=== PATIENT | female | born 1950 | race Caucasian/White ===

== ENCOUNTER → 2016-12-06 | Outpatient (CLI) | payer OTHER ==
[~2016-12-06] MED LIST: CPR500 PO; FLUO40CA8 PO; HYDC25 PO; LEVO25TA30 PO; LISI-725 PO; METR-163 PO; OXYC-57 PO; SIMV20TA2 PO
--- NOTE | 2016-12-06 16:40 | MAMMOGRAPHY REPORT ---
BILATERAL DIGITAL SCREENING MAMMOGRAM WITH CAD: 12/06/2016 CLINICAL HISTORY: Routine screening. Patient has no complaints. TECHNIQUE: Bilateral CC, MLO and repeat left MLO views were obtained. Current study was also evalua candace with a Computer Aided Detection (CAD) system. COMPARISON: Comparison is made to exams dated: 12/04/2015 mammogram, 08/22/2014 mammogram - [facility], 08/29/2013 mammogram, 08/14/2012 mammogram, 08/10/2010 mammogram, and 08/12/2011 mammogram. BREAST COMPOSITION: The tissue of both breasts is heterogeneously dense, which may obscure small ma sses. FINDINGS: A linear scar marker overlies the lower inner quadrant of the right breast. There is slig ht asymmetry of the size of the breasts, left greater than right. 2 surgical clips are stable proje cting over the right superior breast on the MLO view. There are a few benign-appearing coarse calci fications in the breasts. No new suspicious mass, architectural distortion or cluster of suspicious microcalcifications is seen. IMPRESSION: ACR BI-RADS CATEGORY 1: NEGATIVE There is no mammographic evidence of malignancy. A 1 year screening mammogram is recommended. The p atient will receive written notification of the results. Approximately 10% of breast cancers are not detected with mammography. A negative mammographic repor t should not delay biopsy if a clinically suggestive mass is present. Oumou Langley M.D. ay/:12/06/2016 15:57:02 Shift Superintendent: Lachelle TEJEDA(Efren)(Daisy), [facility] letter sent: Normal 1/2 BI-RADS Code: ACR BI-RADS Category 1: Negative
== END | disposition home or self-care (01) ==
LOC: C.MAMM 09:37
PROVIDERS: ATTEND Internal Medicine Critical Care Medicine
DX: Z12.31 Encounter for screening mammogram for malignant neoplasm of breast (principal)

== ENCOUNTER → 2017-02-14 | Outpatient (CLI) | payer OTHER ==
[2017-02-14 10:52] LABS: BASO % 1.7 %; BASO ABS # 0.11 K/uL (0-0.2); COMPLETE YES; EOS % 9.8 %; HEMATOCRIT 45.5 % (37-47); IG% 0.2 %; LYMPH % 25.7 %; LYMPH ABS # 1.65 K/uL (1.2-3.4); MEAN CORPUSCULAR HEMOGLOBIN 31.6 pg (25-34); MEAN CORPUSCULAR HGB CONC 33.6 g/dl (32-36); MEAN PLATELET VOLUME 10.7 fL (7.4-10.4); MONO % 10.4 %; NEUT % 52.2 %; PLATELET COUNT 295 K/uL (130-400); RED BLOOD COUNT 4.84 M/uL (4.2-5.4); WHITE BLOOD COUNT 6.43 K/uL (4.8-10.8)
[2017-02-14 11:00] LABS: BLOOD UREA NITROGEN 18 mg/dl (7-18); BUN/CREATININE RATIO 18.4 (10-20); CARBON DIOXIDE 27 mmol/L (21-32); CHLORIDE 103 mmol/L (98-107); CREATININE 0.96 mg/dl (0.60-1.20); GLUCOSE 90 mg/dl (70-99); POTASSIUM 4.3 mmol/L (3.5-5.1); SODIUM 140 mmol/L (136-145)
== END | disposition home or self-care (01) ==
LOC: C.LABVPSUW 09:33
PROVIDERS: ATTEND Internal Medicine Critical Care Medicine
DX: I10 Essential (primary) hypertension (principal); D64.9 Anemia, unspecified; E03.9 Hypothyroidism, unspecified

== ENCOUNTER → 2017-06-16 | Outpatient (CLI) | payer OTHER ==
[2017-06-16 09:57] LABS: BASO % 1.3 %; BASO ABS # 0.09 K/uL (0-0.2); COMPLETE YES; EOS % 11.7 %; HEMATOCRIT 43.2 % (37-47); IG% 0.1 %; LYMPH % 28.1 %; LYMPH ABS # 1.92 K/uL (1.2-3.4); MEAN CELL VOLUME 93.7 fL (80-100); MEAN CORPUSCULAR HEMOGLOBIN 31.9 pg (25-34); MEAN PLATELET VOLUME 10.1 fL (7.4-10.4); MONO % 9.2 %; NEUT % 49.6 %; PLATELET COUNT 300 K/uL (130-400); RED BLOOD COUNT 4.61 M/uL (4.2-5.4); WHITE BLOOD COUNT 6.84 K/uL (4.8-10.8)
[2017-06-16 10:06] LABS: ALT/SGPT 18 U/L (12-78); AST/SGOT 24 U/L (15-37); BLOOD UREA NITROGEN 20 mg/dl (7-18); BUN/CREATININE RATIO 22.5 (10-20); CALCIUM 9.4 mg/dl (8.5-10.1); CARBON DIOXIDE 28 mmol/L (21-32); CHLORIDE 104 mmol/L (98-107); CREATININE 0.91 mg/dl (0.60-1.20); GLUCOSE 81 mg/dl (70-99); POTASSIUM 4.1 mmol/L (3.5-5.1); SODIUM 139 mmol/L (136-145)
[2017-06-16 10:18] LABS: ALB/GLOB RATIO 0.9 (0.9-2); ALKALINE PHOSPHATASE 99 U/L (45-117); CHOLESTEROL 196 mg/dl (0-200); CHOLESTEROL/HDL RATIO 3.4; HDL CHOLESTEROL 58 mg/dl; LDL CHOLESTEROL CALCULATED 110 mg/dl; TRIGLYCERIDES 139 mg/dl (0-150); VERY LOW DENSITY LIPOPROT CALC 28 mg/dl
[2017-06-16 10:36] LABS: ESTIMATED AVERAGE GLUCOSE 114 mg/dl; HA1C FLAG Normal (Normal)
== END ==
LOC: C.LABVPSUW 09:12
PROVIDERS: ATTEND Internal Medicine Critical Care Medicine
DX: D64.9 Anemia, unspecified (principal); E11.9 Type 2 diabetes mellitus without complications; N28.9 Disorder of kidney and ureter, unspecified; I10 Essential (primary) hypertension; E78.5 Hyperlipidemia, unspecified; E03.9 Hypothyroidism, unspecified

== ENCOUNTER → 2017-12-08 | Outpatient (CLI) | payer OTHER ==
--- NOTE | 2017-12-08 15:38 | MAMMOGRAPHY REPORT ---
BILATERAL DIGITAL SCREENING MAMMOGRAM TOMOSYNTHESIS WITH CAD: 12/08/2017 CLINICAL HISTORY: Asymptomatic. Personal history of breast cancer. TECHNIQUE: Breast tomosynthesis in addition to standard 2D mammography was performed. Current study was also evaluated with a Computer Aided Detection (CAD) system. COMPARISON: Comparison is made to exams dated: 12/06/2016 mammogram, 12/04/2015 mammogram, 08/22/2014 ma mmogram - [facility], 08/29/2013 mammogram, 08/14/2012 mammogram, and 08/12/2011 tim mogram. BREAST COMPOSITION: The tissue of both breasts is heterogeneously dense, which may obscure small mas ses. FINDINGS: No suspicious masses, calcifications, or areas of architectural distortion are noted in ei ther breast. There has been no significant interval change compared to prior exams. There are stable post surgical changes in the right lower inner quadrant, with a linear scar marker denoting a scar o n the right lower inner breast. 2 surgical clips project over the right pectoralis muscle on the MLO view. Bilateral benign-appearing calcifications are not significantly changed. IMPRESSION: ACR BI-RADS CATEGORY 2: BENIGN There is no mammographic evidence of malignancy. A 1 year screening mammogram is recommended. The pa tient will receive written notification of the results. Approximately 10% of breast cancers are not detected with mammography. A negative mammographic report should not delay biopsy if a clinically suggestive mass is present. Elaine Griffin M.D. /:12/08/2017 14:57:43 Park Warden: Karma Reeder, [facility] letter sent: Normal 1/2 BI-RADS Code: ACR BI-RADS Category 2: Benign
== END | disposition home or self-care (01) ==
LOC: C.MAMM 09:08
PROVIDERS: ATTEND Internal Medicine Critical Care Medicine
DX: Z12.31 Encounter for screening mammogram for malignant neoplasm of breast (principal)

== ENCOUNTER → 2018-04-17 | Day surgery (SDC) | payer OTHER ==
[2018-04-11 07:37] VITALS: Ht 167.6 cm; Wt 104.5 kg
[~2018-04-17] VITALS: Ht 167.6 cm; Wt 104.5 kg
[~2018-04-17] MED LIST changes: +ACET-1311 PO; +ATROPINE SULFATE 0.1 MG/ML 5ML SYR IV PRN; -CPR500 PO; +EpHEDrine SULFATE INJ 50 MG/ML AMP IV PRN; -HYDC25 PO; +HYDR25TA4 PO; -LEVO25TA30 PO; +LEVO25TA5 PO; +LIDOCAINE HCL 2% 2 ML VIAL (20MG/ML) ONE; -LISI-725 PO; +LISI20TA3 PO; +METO50TA16 PO; -METR-163 PO; -OXYC-57 PO; +PROPOFOL IV EMULSION 10 MG/ML 20 ML VIAL ONE; +SIMV10TA2 PO; -SIMV20TA2 PO; +SODIUM CHLORIDE 0.9% 500ML 500 ML IV ONE
--- NOTE | 2018-04-17 10:18 | Endo History and Physical ---
History & Physical Date of Service: Apr 17, 2018. Chief Complaint: LUQ pain Referring Physician: Peter Lopez History of Present Illness 67 yo CF who presents for EGD secondary to LUQ abdominal pain. Past Surgical History Hx Cardiac Surgery: No Hx Internal Defibrillator: No Hx Pacemaker: No Hx Abdominal Surgery: Yes (OVARIAN CYST REMOVED) Hx of Implantable Prosthesis: No Hx Post-Op Nausea and Vomiting: No Hx Cancer Surgery: Yes (RT BREAST LUMPECTOMY) Hx Thoracic Surgery: No Hx Orthopedic: Yes (LUMBAR FUSION, RT OTF) Hx Urinary Tract Surgery: No Family History None Social History Smoking Status: Former Smoker Hx Substance Use: No Hx Alcohol Use: Yes (RARELY) Allergies Coded Allergies: Ciprofloxacin (Verified Allergy, Unknown, CAUSED C-DIFF, 04/11/18) Codeine (Verified Adverse Reaction, Mild, NAUSEA/VOMITING, 04/11/18) CAN TOLERATE HYDROCODONE Current Medications Reported Home Medications Medications Dose Route/Sig Max Daily Dose Days Date Category Tylenol (Acetaminophen) 325 Mg Tab 650 Mg PO DIRECTED PRN 04/11/18 Reported Hctz (Hydrochlorothiazide) 25 Mg Tab 25 Mg PO QAM 04/11/18 Reported Prinivil (Lisinopril) 20 Mg Tab 20 Mg PO QAM 04/11/18 Reported Zocor (Simvastatin) 10 Mg Tab 10 Mg PO QAM 04/11/18 Reported Lopressor (Metoprolol Tartrate) 50 Mg Tab 50 Mg PO QAM 04/11/18 Reported Prozac (Fluoxetine HCl) 40 Mg Cap 40 Mg PO QAM 04/11/18 Reported Levothyroxine Sodium 25 Mcg Tab 1 Tab PO QAM 04/11/18 Reported Vital Signs Weight (Kilograms): 104.55 Height (Feet): 5 Height (Inches): 6 Date Time Temp Pulse Resp B/P (MAP) Pulse Ox O2 Delivery O2 Flow Rate FiO2 04/17/18 10:10 36.6 80 20 128/83 (98) 94 Room Air Physical Exam General Appearance: WD/WN, no apparent distress Respiratory/Chest: Auscultation: breath sounds normal Cardiovascular: Heart Auscultation: RRR Abdomen: Bowel Sounds: normal Inspection & Palpation: soft, non-distended, no tenderness, guarding & rebound Assessment and Plan Assessment: 67 yo CF who presents for EGD secondary to LUQ abdominal pain. Plan: Proceed with EGD.
--- NOTE | 2018-04-17 11:52 | Discharge Instructions ---
Endoscopy Patient Instructions Date / Procedure(s) Performed Apr 17, 2018. EGD Allergy Information Coded Allergies: Ciprofloxacin (Verified Allergy, Unknown, CAUSED C-DIFF, 04/17/18) Codeine (Verified Adverse Reaction, Mild, NAUSEA/VOMITING, 04/17/18) CAN TOLERATE HYDROCODONE Discharge Date / Findings Apr 17, 2018. Esophagitis s/p biopsies Hiatal hernia Medication Instructions 1) Start Protonix 40mg by mouth each morning 1/2 hour prior to breakfast. 2) OK to resume all medications today as prescribed Reported Home Medications Medications Dose Route/Sig Max Daily Dose Days Date Category Tylenol (Acetaminophen) 325 Mg Tab 650 Mg PO DIRECTED PRN 04/11/18 Reported Hctz (Hydrochlorothiazide) 25 Mg Tab 25 Mg PO QAM 04/11/18 Reported Prinivil (Lisinopril) 20 Mg Tab 20 Mg PO QAM 04/11/18 Reported Zocor (Simvastatin) 10 Mg Tab 10 Mg PO QAM 04/11/18 Reported Lopressor (Metoprolol Tartrate) 50 Mg Tab 50 Mg PO QAM 04/11/18 Reported Prozac (Fluoxetine HCl) 40 Mg Cap 40 Mg PO QAM 04/11/18 Reported Levothyroxine Sodium 25 Mcg Tab 1 Tab PO QAM 04/11/18 Reported Provider Instructions Activity Restrictions - No exercising or heavy lifting for 24 hours. - Do not drink alcohol the day of the procedure. - Do not drive a car or operate machinery until the day after the procedure. - Do not make any important decisions or sign important papers in 24 hours after the procedure. Following Day: - Return to full activity which may include returning to work/school. Diet Start your diet with liquids and light foods (jello, soup, juice, toast). Then eat your usual diet if not nauseated. Treatment For Common After Affects For mild abdominal pain, bloating, or excessive gas: - Rest - Eat lightly - Lie on right side Follow-Up Information Follow-up with Peter Lopez as scheduled Anesthesia Information What You Should Know You have had a procedure that required some medicine to reduce anxiety and discomfort. This treatment is called moderate sedation. After receiving the treatment, you may be sleepy, but you will be able to breathe on your own. The effects of the treatment may last for several hours. Follow these instructions along with Activity/Diet recommendations noted above: * Do NOT do anything where dizziness or clumsiness would be dangerous. * Rest quietly at home today, then you can be up and about tomorrow. * Have a responsible person stay with you the rest of today. * You may have had an I.V. today. If so, you may take the dressing off later today. Recommendations Call your doctor if: * Trouble breathing * Continuous vomiting for more than 24 hours * Temperature above 101 degrees * Severe abdominal pain or bloating * Pain not relieved by pain medicine ordered * There is increased drainage or redness from any incision * A large amount of rectal bleeding greater than 2-3 tablespoons. (If you had a polyp/s removed or have hemorrhoids, a small amount of blood - from the rectum is to be expected.) * You have any unanswered questions or concerns. IN THE EVENT OF A SERIOUS EMERGENCY, GO TO THE NEAREST EMERGENCY ROOM Your discharge instructions were prepared by provider Mandeep Villalba. Patient Instructions Signature Page Kassi Frod Patient (or Guardian) Signature/Date: I have read and understand the instructions given to me by my caregivers. Caregiver/RN/Doctor Signature/Date: The above-named patient and/or guardian has received patient instructions on this date. + Original Patient Signature Page (only) stays with chart. Please make copy for patient.
--- NOTE | 2018-04-17 11:57 | GI REPORT ---
Patient Name: Kassi Ford Procedure Date: 04/17/2018 11:03 AM Date of : 1950 Admit Type: Outpatient Age: 67 Gender: Female Attending MD: Mandeep Villalba DO Procedure: Upper GI endoscopy Providers: Mandeep Villalba DO Referring MD: Rizwana Coyle Indications: Abdominal pain in the left upper quadrant Medicines: Monitored Anesthesia Care Complications: No immediate complications. Estimated Blood Loss: Estimated blood loss: none. Procedure: Pre-Anesthesia Assessment: - Prior to the procedure, a History and Physical was performed, and patient medications and allergies were reviewed. The patient's tolerance of previous anesthesia was also reviewed. The risks and benefits of the procedure and the sedation options and risks were discussed with the patient. All questions were answered, and informed consent was obtained. Prior Anticoagulants: The patient has taken no previous anticoagulant or antiplatelet agents. ASA Grade Assessment: III - A patient with severe systemic disease. After reviewing the risks and benefits, the patient was deemed in satisfactory condition to undergo the procedure. After obtaining informed consent, the endoscope was passed under direct vision. Throughout the procedure, the patient's blood pressure, pulse, and oxygen saturations were monitored continuously. The scope was introduced through the mouth, and advanced to the second part of duodenum. The upper GI endoscopy was accomplished without difficulty. The patient tolerated the procedure well. Findings: Moderately severe esophagitis with no bleeding was found. Biopsies were taken with a cold forceps for histology. A small hiatal hernia was present. The examined duodenum was normal. Impression: - Moderately severe chronic esophagitis. Biopsied. - Small hiatal hernia. - Normal examined duodenum. Recommendation: - Resume previous diet. - Use Protonix (pantoprazole) 40 mg PO daily. - Await pathology results. - Return to GI office in 6 weeks. Mandeep Villalba DO 04/17/2018 11:56:52 AM This report has been signed electronically. Note Initiated On: 04/17/2018 11:03 AM Number of Addenda: 0 I attest to the content of the Intraoperative Record and orders documented therein, exceptions below {[id number]}
[2018-04-17 12:13] VITALS: BP 122/80; PULSE 72; O2SAT 96
--- NOTE | 2018-04-17 12:17 | Anesthesiology Progress Note ---
Anesthesia Post Op Note Date & Time Apr 17, 2018 at 12:17 Vital Signs Pain Intensity: 0 Vital Signs Past 12 Hours Date Time Temp Pulse Resp B/P (MAP) Pulse Ox O2 Delivery O2 Flow Rate FiO2 04/17/18 12:13 72 20 122/80 (94) 96 Room Air 04/17/18 12:04 72 20 98/73 (81) 94 Room Air 04/17/18 11:47 36.6 85 20 118/76 (90) 93 Room Air 04/17/18 10:10 36.6 80 20 128/83 (98) 94 Room Air Notes Mental Status: alert / awake / arousable, participated in evaluation Pt Amnestic to Procedure: Yes Nausea / Vomiting: adequately controlled Pain: adequately controlled Airway Patency, RR, SpO2: stable & adequate BP & HR: stable & adequate Hydration State: stable & adequate Anesthetic Complications: no major complications apparent
== END | disposition home or self-care (01) ==
LOC: C.GI 09:48
PROVIDERS: ATTEND Internal Medicine
DX: R10.12 Left upper quadrant pain (principal); K20.9 Esophagitis, unspecified; K44.9 Diaphragmatic hernia without obstruction or gangrene; I10 Essential (primary) hypertension; F41.9 Anxiety disorder, unspecified; F32.9 Major depressive disorder, single episode, unspecified; E03.9 Hypothyroidism, unspecified; E78.5 Hyperlipidemia, unspecified; Z86.711 Personal history of pulmonary embolism; Z87.891 Personal history of nicotine dependence; Z88.1 Allergy status to other antibiotic agents; Z88.5 Allergy status to narcotic agent; Z80.3 Family history of malignant neoplasm of breast

== ENCOUNTER 2023-09-17 02:24 | Inpatient (IN) ==
[2023-09-17] MEDS ORDERED: SODIUM CHLORIDE 0.9% 500 ML IV ONE (02:47)
--- NOTE | 2023-09-17 03:19 | Emergency Department Note ---
History of Present Illness General Chief complaint: Fall Stated complaint: Fall, R Hip Pain, R Rib Pain Time Seen by Provider: 09/17/23 02:40 History of Present Illness Provider complaint: Fall Maximum Pain Intensity: 8 73-year-old female presents emergency department for fall. Patient states that she went to the bathroom earlier this evening and then fell. She states she hurt her right ribs and her right hip. She states she did hit her head and is not sure if she lost consciousness. Reports no neck pain. No blood thinners. No abdominal pain. Home Medications Medication Instructions Recorded Confirmed Type fluoxetine 40 mg capsule 40 mg PO QAM 08/12/20 09/17/23 History levothyroxine 25 mcg tablet 25 mcg PO QAM 08/12/20 09/17/23 History lisinopril 20 mg tablet 20 mg PO QAM 08/12/20 09/17/23 History metoprolol succinate 50 mg 50 mg PO QAM 08/12/20 09/17/23 History tablet,extended release 24 hr denosumab 60 mg/mL subcutaneous 60 mg subcut Q180D 12/21/20 09/17/23 History syringe (Prolia) omeprazole 40 mg capsule,delayed 40 mg PO QAM 04/26/21 09/17/23 History release hydrochlorothiazide 25 mg tablet 25 mg PO QAM 06/26/21 09/17/23 History atorvastatin 20 mg tablet 20 mg PO DAILY 09/17/23 09/17/23 History calcium carbonate 600 mg-vitamin 1 tab PO DAILY 09/17/23 09/17/23 History D3 20 mcg (800 unit) chewable tablet (Caltrate 600 plus D) Allergies Allergy/AdvReac Type Severity Reaction Status Date / Time amoxicillin AdvReac Intermediate Diarrhea Verified 09/17/23 03:04 ciprofloxacin AdvReac Intermediate CAUSED Verified 09/17/23 03:04 C-DIFF codeine AdvReac Intermediate NAUSEA/VOMI Verified 09/17/23 03:04 TING Past Med/Surg History Medical History (Updated 09/17/23 @ 06:13 by Andres Alegria MD) Obesity Hx of Clostridium difficile infection years ago-tx Overactive bladder HX: breast cancer 1999, sx, chemo, radiation Cataract Hypertension Hyperlipidemia Hypothyroid Mood disorder "would get panic attacks, was put on fluoxetine to prevent" GERD with esophagitis Surgical History Hx of cataract extraction rt. History of total right hip arthroplasty History of lumbar surgery History of lumpectomy of right breast w/axillary dissection-nodes clear Hx of colonoscopy Hx of wisdom tooth extraction Hx of tonsillectomy Social History Smoking Status: Former smoker Tobacco Type: Cigarettes Second Hand Exposure: Yes (father smoked pipe); Do You Dip or Chew Tobacco: No; Hx Alcohol Use: Yes (hx-none recently) Hx Substance Use: No Preferred Language: Cymro Communication Ability: Effective Extrusion Process Operator Required: No Beliefs That Will Affect Care: None marital status: Current Living Situation: Alone Feels Safe at Home: Yes Assistive Devices: Glasses, Scooter/Electric Scooter and Walker Physical Exam Vital Signs Vital Signs - 24 hr 09/17/23 02:34 09/17/23 02:35 Temperature 36.4 C L Temperature Source Axillary Pulse Rate 92 H 93 H Respiratory Rate 20 Respiratory Effort / Characteristics Non-Labored Spontaneous Respiratory Depth Normal Respiratory Pattern Regular Blood Pressure 94/58 L Blood Pressure Mean 70 Blood Pressure Position Lying Pulse Oximetry 96 Oxygen Delivery Method Room Air Sepsis Recent Fever Within 48 Hours No Sepsis New/Unexplained Change in Mental Status N/A Sepsis Action Taken by Nursing No Action Required Physical Exam GENERAL: She is oriented to person, place, and time. She appears well-developed and well-nourished. She does not appear distressed. HENT: Exam performed. -Head: Normocephalic and atraumatic. -Right Ear: External ear normal. No mastoid erythema -Left Ear: External ear normal. No mastoid erythema -Mouth/Throat: The oropharynx is clear and moist. No trismus in the jaw. No dental abscesses or uvula swelling. No oropharyngeal exudate or tonsillar abscesses. EYES: Conjunctivae and EOM are normal. Pupils are equal, round, and reactive to light. Right eye exhibits no discharge. Left eye exhibits no discharge. No scleral icterus. NECK: Normal range of motion. Neck supple. No JVD present. No spinous process tenderness present. CV: Normal rate, regular rhythm, normal heart sounds and intact distal pulses. There is no peripheral edema. Palpable radial pulses bue. PULM/CHEST: Effort normal and breath sounds normal. No respiratory distress. No stridor. She has no wheezes. She has no rales. -Chest Wall: She exhibits no tenderness. ABD: The abdomen is soft and obese. She has no distension. No mass is present. There is no tenderness. There is no rebound, no guarding MUSC/SKEL: Pelvis stable. NEURO: She is alert and oriented to person, place, and time. She has normal strength. No cranial nerve deficit or sensory deficit. Course Course 0240: The patient was evaluated in room A2. A complete history and physical exam was performed Cardiac monitoring: An order was placed for continuous cardiac monitoring. The monitor shows a rate of 90 with sinus rhythm interpreted by [place] 0611: Vital signs stable. Imaging shows no acute traumatic injury. Labs show a potassium 2.7. Potassium repletion started in the emergency department. Patient's creatinine is 2.29 with BUN of 142. BUN/creatinine ratio is 62. Patient is alert and oriented x 3. No altered mental status. Discussed the case with the [facility] team Dr. Medina who will admit the patient to their service. Administered Medications Discontinued Medications Sodium Chloride (Nss) 500 mls @ 999 mls/hr IV .Q31M ONE Stop: 09/17/23 03:17 Last Admin: 09/17/23 04:43 Dose: 999 mls/hr Documented By: Potassium Chloride (Potassium Chloride 10 Meq Tabcr) 40 meq PO NOW STA Stop: 09/17/23 05:48 Last Admin: 09/17/23 06:02 Dose: 40 meq Documented By: Medical Decision Making Laboratory Data Attestation: I reviewed the patient's lab results. 09/17/23 03:52 09/17/23 03:52 Lab Results 09/17/23 09/17/23 Range/Units 03:52 03:59 WBC 9.47 (4.8-10.8) K/ul RBC 4.43 (4.20-5.40) M/uL Hgb 13.2 (12.0-16.0) g/dl POC Hgb 12.9 (12.0-16.0) g/dl Hct 38.2 (37.0-47.0) % POC Hct 38 (37-47) % MCV 86.2 (80.0-100.0) fL MCH 29.8 (25.0-34.0) pg MCHC 34.6 (32.0-36.0) g/dL RDW Std Deviation 42.4 (36.4-46.3) fL RDW Coeff of [place]mond 13.5 (11.5-14.5) % Plt Count 368 (130-400) K/uL MPV 10.0 (9.4-12.4) fL Immature Gran % (Auto) 0.6 % Neut % (Auto) 68.6 % Lymph % (Auto) 9.5 % [place] % (Auto) 11.1 % Eos % (Auto) 9.1 % Baso % (Auto) 1.1 % Neut # (Auto) 6.50 (1.40-6.50) K/uL Lymph # (Auto) 0.90 L (1.20-3.40) K/uL [place] # (Auto) 1.05 H (0.11-0.59) K/uL Eos # (Auto) 0.86 H (0.00-0.50) K/uL Baso # (Auto) 0.10 (0.00-0.20) K/uL Immature Gran # (Auto) 0.06 (0.01-0.20) K/uL PT 10.7 (9.0-12.0) Seconds INR 1.0 (0.9-1.1) APTT 21 (21-31) Seconds PTT Ratio 0.7 POC Sodium 136 (135-144) mmol/L Sodium 135 L (136-145) mmol/L POC Potassium 2.7 L (3.3-5.0) mmol/L Potassium 2.9 L (3.5-5.1) mmol/L POC Chloride 102 (101-112) mmol/L Chloride 100 (98-107) mmol/L Carbon Dioxide 21 (21-32) mmol/L POC Total CO2 22 L (24-31) mmol/L Anion Gap 14 H (3-11) POC Anion Gap 16.0 (16-25) mmol/L POC BUN 137 H* (7-18) mg/dl BUN 142 H (6-23) mg/dl Creatinine 2.29 H (0.6-1.2) mg/dl POC Creatinine 2.5 H (0.6-1.3) mg/dl Est Cr Clr Drug Dosing 25.5 ml/min Est GFR ( Amer) 23.6 ml/min Est GFR (Non-Af Amer) 20.4 ml/min BUN/Creatinine Ratio 62.0 H (10-20) Glucose 114 H (70-99(Fasting)) mg/dl POC Glucose (other) 119 H (70-99) mg/dl Calcium 11.2 H (8.6-10.3) mg/dl POC Ioniz Calcium Sachin 1.41 H (1.12-1.32) mmol/l Magnesium 2.0 (1.7-2.4) mg/dl Total Creatine Kinase 157 (26-192) U/L Imaging Data Attestation: I personally reviewed and interpreted this imaging study as follows: My Impression: Chest x-ray: Chest x-ray negative. Airway clear. No pneumothorax. No consolidation. No cardiomegaly or cephalization.. No free air under the diaphragm. No fractures of the skeletal structures. Pelvis x-ray: No significant change from the x-ray on September 08, 2023. 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 Right femur x-ray: No acute fracture or dislocation. Chronic right greater trochanteric fracture fragment. Radiologist's Impression: Cervical Spine CT 09/17/23 02:47 Exam(s): CT C SPINE EXAM: CT Cervical Spine Without Intravenous Contrast CLINICAL HISTORY: Reason for exam: fall. TECHNIQUE: Axial computed tomography images of the cervical spine without intravenous contrast. Automated exposure control was utilized for the study. A dose lowering technique was utilized adhering to the principles of ALARA. COMPARISON: No relevant prior studies available. FINDINGS: No acute fracture or traumatic subluxation. 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 Multilevel cervical spondylosis noted. Spinal canal is patent. The prevertebral and paraspinal soft tissues are grossly unremarkable. Approximately 3 cm right thyroid lobe nodule/lesion with associated calcification. Prominent emphysematous changes in the lung apices. IMPRESSION: No acute fracture or traumatic subluxation. Prominent multilevel cervical spondylosis. Approximately 3 cm right thyroid lobe nodule/lesion with associated calcification. Nonemergent ultrasound suggested to further evaluate. Electronically signed by: Dov Gilmore M.D. 09/17/23 05:[address] 09/17/23 02:48 Exam(s): CT HEAD Without Contrast EXAM: CT Head Without Intravenous Contrast CLINICAL HISTORY: Reason for exam: fall. TECHNIQUE: Axial computed tomography images of the head/brain without intravenous contrast. Automated exposure control was utilized for the study. A dose lowering technique was utilized adhering to the principles of ALARA. COMPARISON: No relevant prior studies available. FINDINGS: There is no acute intracranial hemorrhage or major vascular territory infarct. No mass effect or midline shift seen. There is prominence of the ventricles and sulci consistent with generalized parenchymal volume loss. Scattered hypodensities throughout the periventricular and subcortical white matter are noted, likely sequela of chronic microvascular changes. The calvarium is intact. Bilateral lens replacements noted. The visualized paranasal sinuses and mastoid air cells are clear. IMPRESSION: No acute intracranial pathology. Generalized parenchymal volume loss and sequela of chronic microvascular ischemic angiopathy. Electronically signed by: Dov Gilmore M.D. 09/17/23 05:11 AM Abdomen/Pelvis CT 09/17/23 04:03 Exam(s): CT ABDOMEN + PELVIS Without Contrast EXAM: CT Abdomen and Pelvis Without Intravenous Contrast CLINICAL HISTORY: Reason for exam: fall. TECHNIQUE: Axial computed tomography images of the abdomen and pelvis without intravenous contrast. CTDI is 36.6 mGy and DLP is 2537.47 mGy-cm. Automated exposure control was utilized for the study. A dose lowering technique was utilized adhering to the principles of ALARA. COMPARISON: No relevant prior studies available. FINDINGS: Lung bases: Unremarkable. No mass. No consolidation. ABDOMEN: Liver: Unremarkable. Gallbladder and bile ducts: Mildly distended gallbladder. No calcified stones. No ductal dilation. Pancreas: Unremarkable. No ductal dilation. Spleen: Unremarkable. No splenomegaly. Adrenals: Unremarkable. No mass. Kidneys and ureters: Unremarkable. No obstructing stones. No hydronephrosis. Stomach and bowel: Unremarkable. No obstruction. No mucosal thickening. PELVIS: Appendix: No findings to suggest acute appendicitis. Bladder: Unremarkable. No stones. Reproductive: Calcified fibroid uterus. ABDOMEN and PELVIS: Intraperitoneal space: Unremarkable. No free air. No significant fluid collection. Bones/joints: Postoperative changes right hip arthroplasty. Postoperative changes L2-L5 posterior interbody fusion. No acute fracture. No dislocation. Soft tissues: Unremarkable. Vasculature: Unremarkable. No abdominal aortic aneurysm. Lymph nodes: Unremarkable. No enlarged lymph nodes. IMPRESSION: No acute findings in the abdomen or pelvis. Electronically signed by: Zachery Her MD 09/17/23 04:54 AM ECG Data Attestation: I personally reviewed and interpreted this ECG as follows: Rate (beats per minute): 90 Rhythm: + normal sinus ECG Intervals/blocks: + Normal VT and + Normal QT-c ECG ST segments: + Normal ST segments ECG Findings: + PVCs Additional Comments: QRS 70 MDM Narrative 0240: The patient was evaluated in room A2. A complete history and physical exam was performed Cardiac monitoring: An order was placed for continuous cardiac monitoring. The monitor shows a rate of 90 with sinus rhythm interpreted by me 0611: Vital signs stable. Imaging shows no acute traumatic injury. Labs show a potassium 2.7. Potassium repletion started in the emergency department. Patient's creatinine is 2.29 with BUN of 142. BUN/creatinine ratio is 62. Patient is alert and oriented x 3. No altered mental status. Discussed the case with the [facility] hospitalist team Dr. Medina who will admit the patient to their service. Impression & Plan REEMA (acute kidney injury), Recurrent falls Discharge Plan Visit Data Chief Complaint: Fall Stated Complaint: Fall, R Hip Pain, R Rib Pain ED Provider: Andres Alegria Discharge Problem: REEMA (acute kidney injury), Recurrent falls Patient Disposition: Admitted As Inpatient Forms Stand Alone Forms: My [facility] Prescriptions Prescriptions: No Action fluoxetine 40 mg capsule 40 mg PO QAM levothyroxine 25 mcg tablet 25 mcg PO QAM lisinopril 20 mg tablet 20 mg PO QAM metoprolol succinate 50 mg tablet extended release 24 hr 50 mg PO QAM Prolia 60 mg/mL syringe 60 mg subcut Q180D Patient Comments: october and april injections omeprazole 40 mg capsule,delayed release(DR/EC) 40 mg PO QAM hydrochlorothiazide 25 mg tablet 25 mg PO QAM atorvastatin 20 mg tablet 20 mg PO DAILY Caltrate 600 plus D 600 mg-20 mcg (800 unit) Tablet,Chewable 1 tab PO DAILY Referrals Referrals: Peter Lopez MD [Primary Care Provider] -
[2023-09-17 04:12] LABS: iSTAT Creatinine 2.5 mg/dl (0.6-1.3); iSTAT Hemoglobin 12.9 g/dl (12.0-16.0); iSTAT Ionized Calcium 1.41 mmol/l (1.12-1.32); iSTAT Potassium 2.7 mmol/L (3.3-5.0)
[2023-09-17 04:17] LABS: Basophils % (auto) 1.1 %; Eosinophils # (auto) 0.86 K/uL (0.00-0.50); Eosinophils % (auto) 9.1 %; Hematocrit (blood only) 38.2 % (37.0-47.0); Hemoglobin 13.2 g/dl (12.0-16.0); Immature Granulocytes # (auto) 0.06 K/uL (0.01-0.20); Immature Granulocytes % (auto) 0.6 %; Lymphocytes % (auto) 9.5 %; Mean Corpuscular Hemoglobin 29.8 pg (25.0-34.0); Mean Corpuscular Hgb Conc 34.6 g/dL (32.0-36.0); Mean Corpuscular Volume 86.2 fL (80.0-100.0); Monocytes # (auto) 1.05 K/uL (0.11-0.59); Monocytes % (auto) 11.1 %; Neutrophils % (auto) 68.6 %; Platelet Count 368 K/uL (130-400); RDW Coefficient of Variation 13.5 % (11.5-14.5); RDW Standard Deviation 42.4 fL (36.4-46.3); Red Blood Count 4.43 M/uL (4.20-5.40); White Blood Count 9.47 K/ul (4.8-10.8)
[2023-09-17 04:43] LABS: Partial Thromboplastin Ratio 0.7; Partial Thromboplastin Time 21 Seconds (21-31); Prothrombin Time 10.7 Seconds (9.0-12.0)
[2023-09-17] MEDS: SODIUM CHLORIDE 0.9% 500 ML IV SCH ×3 (04:43→10:13)
[2023-09-17 04:46] LABS: Calcium 11.2 mg/dl (8.6-10.3); Creatinine Clr Calc Pharmacy 25.5 ml/min; Est GFR (African American) 23.6 ml/min; Est GFR (Non-African American) 20.4 ml/min; Potassium 2.9 mmol/L (3.5-5.1)
--- NOTE | 2023-09-17 04:55 | CT Scan Report ---
Exam(s): CT ABDOMEN + PELVIS Without Contrast EXAM: CT Abdomen and Pelvis Without Intravenous Contrast CLINICAL HISTORY: Reason for exam: fall. TECHNIQUE: Axial computed tomography images of the abdomen and pelvis without intravenous contrast. CTDI is 36.6 mGy and DLP is 2537.47 mGy-cm. Automated exposure control was utilized for the study. A dose lowering technique was utilized adhering to the principles of ALARA. COMPARISON: No relevant prior studies available. FINDINGS: Lung bases: Unremarkable. No mass. No consolidation. ABDOMEN: Liver: Unremarkable. Gallbladder and bile ducts: Mildly distended gallbladder. No calcified stones. No ductal dilation. Pancreas: Unremarkable. No ductal dilation. Spleen: Unremarkable. No splenomegaly. Adrenals: Unremarkable. No mass. Kidneys and ureters: Unremarkable. No obstructing stones. No hydronephrosis. Stomach and bowel: Unremarkable. No obstruction. No mucosal thickening. PELVIS: Appendix: No findings to suggest acute appendicitis. Bladder: Unremarkable. No stones. Reproductive: Calcified fibroid uterus. ABDOMEN and PELVIS: Intraperitoneal space: Unremarkable. No free air. No significant fluid collection. Bones/joints: Postoperative changes right hip arthroplasty. Postoperative changes L2-L5 posterior interbody fusion. No acute fracture. No dislocation. Soft tissues: Unremarkable. Vasculature: Unremarkable. No abdominal aortic aneurysm. Lymph nodes: Unremarkable. No enlarged lymph nodes. IMPRESSION: No acute findings in the abdomen or pelvis. Electronically signed by: Zachery Her MD 09/17/23 04:54 AM
--- NOTE | 2023-09-17 05:12 | CT Scan Report ---
Exam(s): CT HEAD Without Contrast EXAM: CT Head Without Intravenous Contrast CLINICAL HISTORY: Reason for exam: fall. TECHNIQUE: Axial computed tomography images of the head/brain without intravenous contrast. Automated exposure control was utilized for the study. A dose lowering technique was utilized adhering to the principles of ALARA. COMPARISON: No relevant prior studies available. FINDINGS: There is no acute intracranial hemorrhage or major vascular territory infarct. No mass effect or midline shift seen. There is prominence of the ventricles and sulci consistent with generalized parenchymal volume loss. Scattered hypodensities throughout the periventricular and subcortical white matter are noted, likely sequela of chronic microvascular changes. The calvarium is intact. Bilateral lens replacements noted. The visualized paranasal sinuses and mastoid air cells are clear. IMPRESSION: No acute intracranial pathology. Generalized parenchymal volume loss and sequela of chronic microvascular ischemic angiopathy. Electronically signed by: Dov Gilmore M.D. 09/17/23 05:11 AM
--- NOTE | 2023-09-17 05:14 | CT Scan Report ---
Exam(s): CT C SPINE EXAM: CT Cervical Spine Without Intravenous Contrast CLINICAL HISTORY: Reason for exam: fall. TECHNIQUE: Axial computed tomography images of the cervical spine without intravenous contrast. Automated exposure control was utilized for the study. A dose lowering technique was utilized adhering to the principles of ALARA. COMPARISON: No relevant prior studies available. FINDINGS: No acute fracture or traumatic subluxation. 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 Multilevel cervical spondylosis noted. Spinal canal is patent. The prevertebral and paraspinal soft tissues are grossly unremarkable. Approximately 3 cm right thyroid lobe nodule/lesion with associated calcification. Prominent emphysematous changes in the lung apices. IMPRESSION: No acute fracture or traumatic subluxation. Prominent multilevel cervical spondylosis. Approximately 3 cm right thyroid lobe nodule/lesion with associated calcification. Nonemergent ultrasound suggested to further evaluate. Electronically signed by: Dov Gilmore M.D. 09/17/23 05:13 AM
--- NOTE | 2023-09-17 05:26 | History & Physical Report ---
Date of Service September 17, 2023 Assessment & Plan (1) Fall: Plan: Pt is a 73 yo female with PMH of breast cancer in 1999 s/p chemo and radiation, HTN, HLD, and hypothyroidism presenting due to a fall at home. Pt resides at the [facility] at [facility]. Recurrent falls - admit to med/surg - suspect falls secondary to deconditioning; no acute fractures/bleeds noted on imaging - tylenol PRN for pain, avoid NSAIDs d/t REEMA - PT/OT ordered REEMA - Cr 2.29 (baseline appears ~0.8-1.0) with elevated BUN; CK WNL - suspect pre-renal in setting dehydration and decreased PO intake - s/p 1 L in ER, continue IVF at 125 mL/hr - continue to monitor BMP Hypokalemia - 2.9 upon admission; s/p 40 meq PO in ER - in the setting of REEMA, dehydration - will add an additional 20 meq IV - monitor BMP HTN - hold home lisinopril and HCTZ in setting of REEMA - continue metoprolol 50 mg qAM HLD - continue atorvastatin 20 mg daily Mood disorder - continue fluoxetine 40 mg daily GERD - continue PPI Diet: regular VTE ppx: lovenox Code: DNR Dispo: med/surg, suspect pt may benefit from rehab/SNF (2) Right hip pain: (3) Acute kidney injury: (4) Hyperlipidemia: (5) Hypertension: (6) Hypothyroid: History of Present Illness Chief Complaint: fall Primary Care Provider: Peter Lopez MD Pt is a 73 yo female with PMH of breast cancer in 1999 s/p chemo and radiation, HTN, HLD, and hypothyroidism presenting due to a fall at home. Pt resides at the [facility] at [facility]. Pt has had many falls recently resulting in ER visits. She states she fell on which led her to come to the ER on 09/05/2023. Pt had another fall which prompted this ER visit. She denies pain at this time. She does note that she has been in bed for the past 2 weeks because she has been feeling unsteady on her feet. Therefore, she has not been eating or drinking normally. In the ER, pt was tachycardic to the 90s and BP 90s/50s. Her lab work was signi ficant for no leukocytosis, no anemia, platelets WNL, Na 135, K 2.9, BUN/Cr 142/2.29, and CK WNL. Cervical CT showed multilevel spondylosis in addition to a 3 cm thyroid lesion- no acute fracture. Head CT and CTAP neg for acute pathology. Femur xray w/o fracture. Pelvic xray showing right hip replacement and arthritis changes. CXR w/o abnormalities. She was given 1L bolus of fluids and started on maintenance IVF. Allergies Allergy/AdvReac Type Severity Reaction Status Date / Time amoxicillin AdvReac Intermediate Diarrhea Verified 09/17/23 03:04 ciprofloxacin AdvReac Intermediate CAUSED Verified 09/17/23 03:04 C-DIFF codeine AdvReac Intermediate NAUSEA/VOMI Verified 09/17/23 03:04 TING Home Medications Medication Instructions Recorded Confirmed Type fluoxetine 40 mg capsule 40 mg PO QAM 08/12/20 09/17/23 History levothyroxine 25 mcg tablet 25 mcg PO QAM 08/12/20 09/17/23 History lisinopril 20 mg tablet 20 mg PO QAM 08/12/20 09/17/23 History metoprolol succinate 50 mg 50 mg PO QAM 08/12/20 09/17/23 History tablet,extended release 24 hr denosumab 60 mg/mL subcutaneous 60 mg subcut Q180D 12/21/20 09/17/23 History syringe (Prolia) omeprazole 40 mg capsule,delayed 40 mg PO QAM 04/26/21 09/17/23 History release hydrochlorothiazide 25 mg tablet 25 mg PO QAM 06/26/21 09/17/23 History atorvastatin 20 mg tablet 20 mg PO DAILY 09/17/23 09/17/23 History calcium carbonate 600 mg-vitamin 1 tab PO DAILY 09/17/23 09/17/23 History D3 20 mcg (800 unit) chewable tablet (Caltrate 600 plus D) Past Med/Surg History Medical History (Updated 09/17/23 @ 06:13 by Andres Alegria MD) Obesity Hx of Clostridium difficile infection years ago-tx Overactive bladder HX: breast cancer 1999, sx, chemo, radiation Cataract Hypertension Hyperlipidemia Hypothyroid Mood disorder "would get panic attacks, was put on fluoxetine to prevent" GERD with esophagitis Surgical History Hx of cataract extraction rt. History of total right hip arthroplasty History of lumbar surgery History of lumpectomy of right breast w/axillary dissection-nodes clear Hx of colonoscopy Hx of wisdom tooth extraction Hx of tonsillectomy Social History Smoking Status: Former smoker Tobacco Type: Cigarettes Second Hand Exposure: Yes (father smoked pipe); Do You Dip or Chew Tobacco: No; Hx Alcohol Use: No Hx Substance Use: No Preferred Language: Moroccan Communication Ability: Effective Support Dba Required: No Beliefs That Will Affect Care: None marital status: Current Living Situation: Alf Current Living Situation Comment: independent living Other Information That Helps Us Care for You: No Feels Safe at Home: Yes Assistive Devices: Scooter/Electric Scooter and Walker Review of Systems Review of Systems: As per HPI Physical Exam Physical Exam: Constitutional: well appearing, no acute distress HEENT: normocephalic, no conjunctival injection CV: RRR, no murmur, no LE edema Respiratory: CTA bilaterally. No rhonchi, wheezes, or crackles. No increased work of breathing MSK: no gross deformities noted Skin: warm, dry, no rashes Neuro: alert, no FND noted Psych: mood and affect congruent Results & Data Results & Data Vital Signs (Past 12 Hours) Vital Signs Temp Pulse Resp BP Pulse Ox O2 Del Method 09/17/23 02:35 93 H 09/17/23 02:34 36.4 C L 92 H 20 94/58 L 96 Room Air Supervising Physician Co-Signing Physician Notes Attending addendum: I have physically seen this patient, have supervised the medical residents activities, and agree with the H&P unless as otherwise noted. Assessment and Plan: Acute kidney injury- Creatinine 2.29, with baseline 0.92 Status post 1 L normal saline in the ED Continue NSS at 125 MLS per hour Repeat laboratories in a.m. Hypokalemia- Potassium 2.9 Status post 40 mEq p.o. replacement in the ED Monitor repletion carefully in the setting of REEMA Hypertension- Hold lisinopril and HCTZ Continue metoprolol succinate 50 mg every morning with hold parameters Resident Activity Tracking Resident Involvement: Resident Care Provided Care Provided: [facility]
[2023-09-17] MEDS ORDERED: POTASSIUM CHLORIDE 10 MEQ TABCR PO STA (05:47)
[2023-09-17] MEDS ORDERED: ONDANSETRON INJ 2 MG/ML 2 ML VIAL IV PRN (05:53)
[2023-09-17] MEDS ORDERED: ACETAMINOPHEN 325 MG TAB PO PRN (05:53)
[2023-09-17 06:58] LABS: Appearance Urine Clear (Clear); Bacteria Urine Automated 3+ (Negative); Bilirubin Urine Negative (Negative); Blood Urine Negative (Negative); Color Urine Yellow; Glucose Urine UA Negative (Negative); Ketones Urine Negative (Negative); Leukocyte Esterase Urine 1+ (Negative); Nitrite Urine Negative (Negative); Protein Urine Negative (Negative); RBC Urine Automated 0-4 /hpf (0-4); Specific Gravity Urine 1.014 (1.000-1.030); Urobilinogen Urine Negative (Negative); pH Urine 5.5 (4.5-7.5)
--- NOTE | 2023-09-17 06:58 | XRay Report ---
SINGLE VIEW CHEST CLINICAL HISTORY: Fall. FINDINGS: 2 AP, portable, semierect chest radiographs are compared to study dated 09/17/2021. Surgical clips are noted in the right axilla. The heart is mildly enlarged. The pulmonary vasculature is nonc ongested. There is bibasilar scarring/atelectasis. Emphysema and chronic interstitial thickening is s imilar to previous. The lungs and pleural spaces are otherwise clear. No pneumothorax is seen. The sk eletal structures are osteopenic. The bony thorax is grossly intact. IMPRESSION: Mild cardiomegaly and emphysema with no acute cardiopulmonary abnormality identified. ACT 112: Negative or not required by law. Electronically signed by: Yoan Monroy M.D. 09/17/2023 6:55 AM
--- NOTE | 2023-09-17 07:03 | XRay Report ---
SINGLE VIEW PELVIS; 2 VIEWS RIGHT FEMUR CLINICAL HISTORY: Fall. Right leg pain. FINDINGS: An AP view of the pelvis with AP and crosstable lateral views of the right femur are compar ed to pelvic radiograph and CT dated 09/08/2023. The skeletal structures are osteopenic. There is no ra diographic evidence of acute fracture involving the hips or bony pelvis. There is no radiographic dilan dence of right femoral fracture. A bipolar right hip arthroplasty is in near anatomic alignment. No p eriprosthetic lucency is seen. Chronic avulsion of the greater trochanter of the right femur is uncha nged. Fusion hardware is noted at the lumbosacral junction. There is moderate osteoarthritic change a nd joint space narrowing of the left hip joint. The right knee joint is grossly maintained noting deg enerative change. The overlying soft tissues are within normal limits. Large calcified fibroids are s een in the pelvis. IMPRESSION: 1. No acute fracture is seen involving the hips or bony pelvis. 2. There is no radiographic evidence of right femoral fracture. 3. A right hip arthroplasty is in near anatomic alignment. Electronically signed by: Yoan Monroy M.D. 09/17/2023 7:01 AM
--- NOTE | 2023-09-17 08:06 | Communication Note ---
Date of Service: September 17, 2023 Admitted this AM 73 y/o resident of the [facility] admitted with REEMA, severe hypokalemia after a fall Sister at bedside provides more history - around holidays had ED visits for L anterior thigh pain, falls, had rx for tramadol 15 tabs, PCP gave her steroid burst. Thigh pain appears to have resolved. Has chronic back and L hip pain. Was in pain, weak, afraid of falling so mainly stayed in bed last 2 weeks and eating / drinking poorly. Takes APAP alternating with ibuprofen for back pain. REEMA with associated HAGMA -presumably prerenal + NSAIDS, setting of diuretic and DEE -HCTZ and lisinopril held -no obstruction on CT -FeNa won't be helpful with recent HCTZ -making good amount of urine -IV NS at 125/h. -Recheck BMP now - Cr slightly improved to 2.14 Severe hypokalemia K 2.9 - replacing. Mag 2.0 -given 40 meq po, 20 meq in IV. Likely to need significantly more but caution with REEMA -repeat BMP ordered now - K improved to 3.0, ordered 40 meq po x 1 -AM BMP Mild hypotension - BP in mid 90s/60s. Previously normotensive to hypertensive in 2022. No leukocytosis, fever. UA mildly abnormal. Likely related to volume depletion and unlikely sepsis. BUN/Cr ratio 62 -hold metoprolol -urine culture added on Mild hypercalcemia - Ca 11 / iCa 1.4 - probably related to volume depletion, recheck after IV fluids. Does have history of breast cancer in 1999 s/p chemo and radiation Fall, weakness. Multiple previous falls. Feeling unsteady and in bed last 2 weeks because of this. -CT abd/pelvis, Ct cspine, pelvis and R femur xray negative for fractures -related to volume depletion and metabolic disturbances above -PT/OT Incidental finding on c-spine CT: "Approximately 3 cm right thyroid lobe nodule/lesion with associated calcification. Nonemergent ultrasound suggested to further evaluate" Hypothyroidism continue levothyroxine - TSH 1.78 in 07/2023 and multilple normal checks prior to that DVT ppx: Enoxaparin 30 q24 Dispo: discussed with care coord patient and her sister - lives at [facility], independent. Will need SNF/rehab. PT/OT evals pending
[2023-09-17 09:04] LABS: BUN Creatinine Ratio 60.3 (10-20); Calcium 11.2 mg/dl (8.6-10.3); Creatinine Clr Calc Pharmacy 27.3 ml/min; Est GFR (African American) 25.6 ml/min; Est GFR (Non-African American) 22.1 ml/min
[2023-09-17] MEDS: ENOXAPARIN INJ 30 MG/0.3 ML SYR SQ SCH (09:40)
[2023-09-17] MEDS: ATORVASTATIN 20 MG TAB PO SCH (09:41)
[2023-09-17] MEDS: LEVOTHYROXINE SODIUM 25 MCG TABLET PO SCH (09:41)
[2023-09-17] MEDS: FLUoxetine HCL 20 MG CAP PO SCH (09:42)
[2023-09-17] MEDS: PANTOprazole 40 MG TAB PO SCH (09:42)
[2023-09-17] MEDS: POTASSIUM CHLORIDE / WTR 10 MEQ/100 ML PLCT IV SCH ×2 (10:07→11:31)
[2023-09-17] MEDS: SODIUM CHLORIDE 0.9% 1,000 ML IV SCH ×2 (10:12→19:07)
[2023-09-17] MEDS ORDERED: POTASSIUM CHLORIDE CRTAB 20 MEQ TABCR PO STA (11:20)
--- NOTE | 2023-09-17 21:00 | Billing Data ---
Date of Service September 17, 2023 Coding Level of Care Code 77760 INT INP/OBS CARE
--- NOTE | 2023-09-17 21:11 | Electrocardiogram Report ---
Test Reason : Blood Pressure : / mmHG Vent. Rate : 090 BPM Atrial Rate : 090 BPM P-R Int : 200 ms QRS Dur : 070 ms QT Int : 358 ms P-R-T Axes : 024 007 103 degrees QTc Int : 437 ms Poor data quality, interpretation may be adversely affected Sinus rhythm with Premature ventricular complexes Low voltage QRS Abnormal ECG When compared with ECG of 17-SEP-2021 03:30, No significant change Confirmed by Colby Mak ([id number]) on 09/17/2023 9:11:16 PM Referred By: REFERRED SELF Confirmed By:Colby Mak
[2023-09-18] MEDS: SODIUM CHLORIDE 0.9% 1,000 ML IV SCH ×3 (02:17→20:11)
[2023-09-18] MEDS: LEVOTHYROXINE SODIUM 25 MCG TABLET PO SCH (05:46)
[2023-09-18] MEDS: FLUoxetine HCL 20 MG CAP PO SCH (07:40)
[2023-09-18] MEDS: PANTOprazole 40 MG TAB PO SCH (07:41)
[2023-09-18] MEDS: ENOXAPARIN INJ 30 MG/0.3 ML SYR SQ SCH (07:41)
[2023-09-18] MEDS: ATORVASTATIN 20 MG TAB PO SCH (07:41)
[2023-09-18 07:44] LABS: Hematocrit (blood only) 38.5 % (37.0-47.0); Hemoglobin 12.9 g/dl (12.0-16.0); Mean Corpuscular Hemoglobin 30.1 pg (25.0-34.0); Mean Corpuscular Hgb Conc 33.5 g/dL (32.0-36.0); Mean Platelet Volume 9.7 fL (9.4-12.4); Platelet Count 268 K/uL (130-400); RDW Coefficient of Variation 14.4 % (11.5-14.5); Red Blood Count 4.28 M/uL (4.20-5.40); White Blood Count 6.77 K/ul (4.8-10.8)
[2023-09-18] MEDS: ACETAMINOPHEN 325 MG TAB PO PRN ×2 (07:50→20:18)
[2023-09-18 08:36] LABS: BUN Creatinine Ratio 69.7 (10-20); Calcium 10.5 mg/dl (8.6-10.3); Creatinine Clr Calc Pharmacy 47.9 ml/min; Est GFR (African American) 50.5 ml/min; Est GFR (Non-African American) 43.6 ml/min; Potassium 3.4 mmol/L (3.5-5.1)
[2023-09-18] MEDS ORDERED: POTASSIUM CHLORIDE CRTAB 20 MEQ TABCR PO STA (08:41)
[2023-09-18] MEDS: CYCLOBENZAPRINE HCL 5 MG TAB PO PRN (08:48)
--- NOTE | 2023-09-18 16:48 | Hospitalist Progress Note ---
Date of Service September 18, 2023 Assessment & Plan (1) Acute kidney injury: Plan: 73 [place] admitted with REEMA, severe hypokalemia after a fall Sister at bedside provides more history - around holidays had ED visits for L anterior thigh pain, falls, had rx for tramadol 15 tabs, PCP gave her steroid burst. Thigh pain appears to have resolved. Has chronic back and L hip pain. Was in pain, weak, afraid of falling so mainly stayed in bed last 2 weeks and eating / drinking poorly. Was taking APAP alternating with ibuprofen for back pain. REEMA with associated HAGMA -prerenal + NSAIDS, setting of diuretic and DEE -HCTZ and lisinopril held -no obstruction on CT -FeNa won't be helpful with recent HCTZ -making good amount of urine -treated with IV NS and resolving, Cr 1.22 today -decrease NS rate to 80 (has continuous rate ordered), AM BMP (2) Hypokalemia: Plan: Severe hypokalemia K 2.9 - replacing. Mag 2.0 -serial IV and po K replacements given since admission -mildly low this AM 20 meq po K ordered -AM BMP (3) Fall: Plan: Recurrent falls - suspect falls secondary to deconditioning; no acute fractures/bleeds noted on imaging - tylenol PRN for pain, avoid NSAIDs d/t REEMA - reviewed medlist - PT/OT ordered, rehab stay recommended (4) Hypercalcemia: Plan: Ca 11.2 / ionized 1.41 in ED, improved to 10.5 -immobility, dehydration playing a role, also on Ca/D supplementation, held -AM BMP, further workup if remaining elevated (5) Right hip pain: (6) Hyperlipidemia: (7) Hypertension: (8) Hypothyroid: Plan: continue levothyroxine Plan Had left anterior thigh pain for a few weeks prior to admission, sounds like a peripheral nerve syndrome, PCP gave steroids, this resolved Has chronic back pain - try to avoid opioids and meds that would contribute to falls. can not take nsaid - continue APAP, low dose PRN cyclobenzaprine, consider - PT/OT Mild hypotension - BP in mid 90s/60s first 24h of admission. Previously normotensive to hypertensive in 2022. No leukocytosis, fever. UA mildly abnormal without dysuria. -resolved, resume metoprolol HTN - hold home lisinopril and HCTZ in setting of REEMA. - continue metoprolol 50 mg qAM HLD - continue atorvastatin 20 mg daily Mood disorder - continue fluoxetine 40 mg daily GERD - continue PPI VTE ppx: lovenox Code: DNR Dispo: PT/OT rec SNF - prefers to go to [facility]. I updated her daughter Luz Marina by phone today x 25 min. she is travelling will arrive by tomorrow pm. cell is [phone] Admission and Anticipated Discharge Date Admission Date: September 17, 2023 Subjective Kassi is feeling much better today. Did not complain of any back pain and did her PT and OT session this AM. Daughter is driving here today for visit. No shortness of breath or cough. Physical Exam 2 Physical Exam: PHYSICAL EXAMINATION Last 24h vital signs reviewed, see documentation in flowsheet General: comfortable appearing, no distress, lying flat on back in bed awake HEENT: Normocephalic, atraumatic, pupils round and equal, sclerae anicteric, no conjunctival injection, moist mucus membranes Lungs: Normal respiratory effort. Clear to auscultation bilaterally. No RRW Heart: Regular rate and rhythm, no murmurs. No JVD Abdomen: Soft, nontender, nondistended. Bowel sounds present. Extremities: Warm, dry, well-perfused. No extremity edema. Neuro: Alert and oriented x 4, face symmetric, moves 4 extremities well Psych: Normal affect and behavior Results & Data Results & Data Vital Signs (Past 12 Hours) Vital Signs Temp Pulse Pulse Resp BP BP Pulse Ox 09/18/23 15:14 36.5 C 97 H 17 146/83 H 97 09/18/23 07:06 36.5 C 88 18 118/75 96 O2 Del Method 09/18/23 15:14 Room Air 09/18/23 07:06 Room Air Laboratory Results 09/18/23 07:22 09/18/23 07:22 PG Care Time/CCT Total # of Minutes Spent Total Time Spent with Patient: I personally spent: 50 minutes today on clinical care activities including: reviewing chart notes and vital signs reviewing labs discussion with health care marketing specialist examining and counseling the patient counseling the patient's family writing orders documentation Coding Level of Care Code 62364 SUB INP/OBS CARE 3/50MIN Diagnoses Acute kidney injury N17.9 Hypokalemia E87.6 Fall W19.XXXA Hypercalcemia E83.52 Right hip pain M25.551 Hyperlipidemia E78.5 Hypertension I10 Hypothyroid E03.9
[2023-09-19] MEDS: LEVOTHYROXINE SODIUM 25 MCG TABLET PO SCH (05:20)
[2023-09-19] MEDS: CYCLOBENZAPRINE HCL 5 MG TAB PO PRN (05:24)
[2023-09-19] MEDS: FLUoxetine HCL 20 MG CAP PO SCH (07:41)
[2023-09-19] MEDS: PANTOprazole 40 MG TAB PO SCH (07:41)
[2023-09-19] MEDS: ENOXAPARIN INJ 40 MG/0.4 ML SYR SQ SCH (07:41)
[2023-09-19] MEDS: ATORVASTATIN 20 MG TAB PO SCH (07:41)
[2023-09-19 08:51] LABS: Creatinine Clr Calc Pharmacy 66.5 ml/min; Est GFR (Non-African American) 64.7 ml/min; Potassium 3.3 mmol/L (3.5-5.1)
[2023-09-19] MEDS: ACETAMINOPHEN 325 MG TAB PO PRN (09:00)
[2023-09-19] MEDS: METOPROLOL SUCC 50MG EXT REL TAB PO SCH (09:01)
[2023-09-19] MEDS ORDERED: POTASSIUM CHLORIDE CRTAB 20 MEQ TABCR PO STA (11:10)
[2023-09-19] MEDS: SODIUM CHLORIDE 0.9% 1,000 ML IV SCH (11:19)
[2023-09-19] MEDS ORDERED: cephALEXin 500 MG CAP PO SCH (11:30)
[2023-09-19 13:00] LABS: Phosphorus 1.6 mg/dl (2.5-4.9)
[2023-09-19 13:13] LABS: Thyroid Stimulating Hormone 0.96 uIu/ml (0.300-4.500)
[2023-09-19] MEDS: cephALEXin 500 MG CAP PO SCH ×2 (13:19→20:35)
--- NOTE | 2023-09-19 13:23 | Hospitalist Progress Note ---
Date of Service September 19, 2023 Assessment & Plan (1) Acute kidney injury: Plan: 73 [place] with REEMA, severe hypokalemia after a fall Sister at bedside provides more history - around holidays had ED visits for L anterior thigh pain, falls, had rx for tramadol 15 tabs, PCP gave her steroid burst. Thigh pain appears to have resolved. Has chronic back and L hip pain. Was in pain, weak, afraid of falling so mainly stayed in bed last 2 weeks and eating / drinking poorly. Was taking APAP alternating with ibuprofen for back pain. REEMA with associated HAGMA-creatinine 2.2 on arrival and now down to normal at 0.88 after IV fluids, holding lisinopril and HCTZ -The cause is prerenal + NSAIDS, and the setting of diuretic and ACEi. No obstruction in the tract seen on CT -Continue to hold HCTZ and lisinopril -FeNa won't be helpful with recent HCTZ -making good amount of urine -Discontinue IV fluids, she is taking good amounts of p.o. (2) Hypokalemia: Plan: Severe hypokalemia K 2.9 on arrival which has been replaced Could be from poor p.o. intake plus HCTZ use Remains mildly low today at 3.3-give potassium chloride 40 mill equivalents p.o. x 1 Plan to discontinue HCTZ permanently for hypercalcemia (3) Fall: Plan: Recurrent falls - suspect falls secondary to deconditioning; no acute fractures/bleeds noted on imaging - tylenol PRN for pain, avoid NSAIDs d/t REEMA - reviewed medlist and no offending agents except perhaps HCTZ causing hypovolemia - PT/OT ordered, rehab stay recommended (4) Hypercalcemia: Plan: Ca 11.2 / ionized 1.41 in ED, improved to 10.5 but now back up to 11.0 despite IV fluids, resolution of REEMA, and holding HCTZ -immobility, dehydration playing a role, also on Ca/D supplementation, held Checked intact PTH which is appropriately low at 17. Check vitamin D 25OH which is low normal at 28 Phosphorus is low-replace with potassium phosphorus 2 tablets p.o. 4 times daily x 4 doses Could still be from immobility and HCTZ plus calcium supplementation-follow calcium levels Also check DEE level and 1, 25OH vitamin D to look for evidence of sarcoidosis Check parathyroid related protein No need for acute treatment at this time (5) Right hip pain: Plan: Improving as above, needs PT Has chronic back pain - try to avoid opioids and meds that would contribute to falls. can not take nsaid - continue APAP, low dose PRN cyclobenzaprine - PT/OT (6) Hyperlipidemia: Plan: Continue atorvastatin (7) Hypertension: Plan: Blood pressures are controlled - hold home lisinopril and HCTZ in setting of REEMA. Would not resume HCTZ due to hypercalcemia and hypovolemia resulting in REEMA - continue metoprolol 50 mg qAM (8) Hypothyroid: Plan: continue levothyroxine TSH here normal (9) UTI (urinary tract infection): Plan: Urinalysis abnormal on admission and urine culture now growing Klebsiella which is pansensitive-start cephalexin 500 Mg p.o. twice daily x 3-day course She did not think she had symptoms of such but was feeling weak and this could have been a symptom (10) Mood disorder: Plan: Continue fluoxetine (11) GERD with esophagitis: Plan: Continue PPI Plan VTE ppx: lovenox Code: DNR Dispo: PT/OT rec SNF - prefers to go to [facility] she is excepted there for tomorrow Daughter Luz Marina cell is [phone] Admission and Anticipated Discharge Date Admission Date: September 17, 2023 Subjective Patient reports generalized weakness. She is incontinent to urine as she could not get to the bathroom fast enough with nursing. Otherwise denies any urinary symptoms. No shortness of breath or chest pain. Physical Exam Constitutional: WD/WN, vitals as above Respiratory: normal respiratory effort, lungs clear to auscultation Cardiovascular: RRR, no murmur, no edema Gastrointestinal (Abdomen): normal bowel sounds, soft, nontender, no hepatosplenomegaly Psychiatric: A+Ox3, euthymic affect Results & Data Results & Data Vital Signs (Past 12 Hours) Vital Signs Temp Pulse Resp BP Pulse Ox O2 Del Method 09/19/23 06:20 36.5 C 99 H 14 118/75 97 Room Air Laboratory Results BMP, phosphorus, vitamin D25-OH, TSH, and intact PTH reviewed PG Care Time/CCT Total # of Minutes Spent Total Time Spent with Patient: Total time spent is greater than 50% in coordination of care (as documented) at patient's floor/unit and/or counseling patient: Coding Level of Care Code 99586 SUB INP/OBS CARE 235MIN Diagnoses Acute kidney injury N17.9 Hypokalemia E87.6 Fall W19.XXXA Hypercalcemia E83.52 Right hip pain M25.551 Hyperlipidemia E78.5 Hypertension I10 Hypothyroid E03.9 UTI (urinary tract infection) N39.0 Mood disorder F39 GERD with esophagitis K21.00
[2023-09-19] MEDS: POLYETHYLENE (MIRALAX) 17 GM PACK PO SCH (16:12)
[2023-09-19] MEDS ORDERED: MELATONIN 3 MG TAB PO PRN (19:55)
[2023-09-19] MEDS: POT PHOSPHATE MONOBASIC W/ SOD TAB PO SCH (20:35)
[2023-09-20] MEDS: LEVOTHYROXINE SODIUM 25 MCG TABLET PO SCH (05:11)
[2023-09-20] MEDS: cephALEXin 500 MG CAP PO SCH (08:43)
[2023-09-20] MEDS: PANTOprazole 40 MG TAB PO SCH (08:44)
[2023-09-20] MEDS: POT PHOSPHATE MONOBASIC W/ SOD TAB PO SCH ×2 (08:44→12:35)
[2023-09-20] MEDS: FLUoxetine HCL 20 MG CAP PO SCH (08:45)
[2023-09-20] MEDS: METOPROLOL SUCC 50MG EXT REL TAB PO SCH (08:46)
[2023-09-20] MEDS: ATORVASTATIN 20 MG TAB PO SCH (08:46)
[2023-09-20] MEDS: ENOXAPARIN INJ 40 MG/0.4 ML SYR SQ SCH (08:48)
[2023-09-20] MEDS: POLYETHYLENE (MIRALAX) 17 GM PACK PO SCH (08:55)
[2023-09-20 09:08] LABS: Albumin Level 2.9 gm/dl (3.4-5.0); BUN Creatinine Ratio 37.3 (10-20); Bilirubin,Total 0.7 mg/dl (0.2-1.0); Calcium 10.7 mg/dl (8.6-10.3); Est GFR (Non-African American) 78.5 ml/min; Globulin 2.9 gm/dl (2.5-4.0); Potassium 3.9 mmol/L (3.5-5.1); Total Protein 5.8 gm/dl (6.0-8.3)
--- NOTE | 2023-09-20 13:23 | Discharge Summary ---
Discharge Summary Date of Service September 20, 2023 Notes For Next Care Provider Needs follow up on hypercalcemia Medication Changes From Visit Discontinued HCTZ Discontinued Caltrate-D Reduced lisinopril to 10mg po daily Added cyclobenzabrine 2.5mg po tid prn muscle spasm Admission HPI Per Admitting Provider Pt is a 73 yo female with PMH of breast cancer in 1999 s/p chemo and radiation, HTN, HLD, and hypothyroidism presenting due to a fall at home. Pt resides at the [facility]. Pt has had many falls recently resulting in ER visits. She states she fell on which led her to come to the ER on 09/05/2023. Pt had another fall which prompted this ER visit. She denies pain at this time. She does note that she has been in bed for the past 2 weeks because she has been feeling unsteady on her feet. Therefore, she has not been eating or drinking normally. In the ER, pt was tachycardic to the 90s and BP 90s/50s. Her lab work was significant for no leukocytosis, no anemia, platelets WNL, Na 135, K 2.9, BUN/Cr 142/2.29, and CK WNL. Cervical CT showed multilevel spondylosis in addition to a 3 cm thyroid lesion- no acute fracture. Head CT and CTAP neg for acute pathology. Femur xray w/o fracture. Pelvic xray showing right hip replacement and arthritis changes. CXR w/o abnormalities. She was given 1L bolus of fluids and started on maintenance IVF. Principal Dx & Hospital Course #1 = Principal Diagnosis (1) Acute kidney injury: 73 y/o resident of the [facility] admitted with REEMA, severe hypokalemia after a fall Sister at bedside provides more history - around holidays had ED visits for L anterior thigh pain, falls, had rx for tramadol 15 tabs, PCP gave her steroid burst. Thigh pain appears to have resolved. Has chronic back and L hip pain. Was in pain, weak, afraid of falling so mainly stayed in bed last 2 weeks and eating / drinking poorly. Was taking APAP alternating with ibuprofen for back pain. REEMA with associated HAGMA-creatinine 2.2 on arrival and now down to normal after IV fluids, and holding lisinopril and HCTZ -The cause is prerenal + NSAIDS, and the setting of diuretic and ACEi. No obstruction in the tract seen on CT -discontinued HCTZ permanently and radha resume lisinopril at lower dose of 10mg daily on discharge as BPs have been normal without it -making good amount of urine (2) Hypokalemia: Severe hypokalemia K 2.9 on arrival which has been replaced and now normalized Likely from poor p.o. intake plus HCTZ use Plan to discontinue HCTZ permanently for hypercalcemia (3) Fall: Recurrent falls - suspect falls secondary to deconditioning, hypovolemia from HCTZ use - no acute fractures/bleeds noted on imaging - tylenol PRN for pain, avoid NSAIDs d/t REEMA - reviewed medlist and no offending agents except perhaps HCTZ causing hypovolemia - PT/OT ordered, rehab stay recommended -cyclobenzaprine prn thigh spasm (4) Hypercalcemia: Ca 11.2 / ionized 1.41 in ED, improved to 10.7 with IV fluids, resolution of REEMA, and holding HCTZ -immobility, dehydration playing a role, also on Ca/D supplementation, held Checked intact PTH which is appropriately low at 17. Checked vitamin D 25OH which is low normal at 28 Phosphorus is low-replaced Could still be from immobility and HCTZ plus calcium supplementation-follow calcium levels after discharge Also checked DEE level, 1, 25OH vitamin D to look for evidence of sarcoidosis- PENDING Checked parathyroid related protein-PENDING No need for acute treatment at this time PCP can follow after discharge (5) Right hip pain: Improving as above, needs PT Has chronic back pain - try to avoid opioids and meds that would contribute to falls. can not take nsaid - continue APAP, low dose PRN cyclobenzaprine - PT/OT (6) Hyperlipidemia: Continue atorvastatin (7) Hypertension: Blood pressures are controlled/normal despite being off HCTZ and lisinopril for several days - resume lisinopril at lower dose of 10mg daily -dc HCTZ in setting of REEMA. Would not resume HCTZ due to hypercalcemia and hypovolemia resulting in REEMA - continue metoprolol 50 mg qAM (8) Hypothyroid: continue levothyroxine TSH here normal (9) UTI (urinary tract infection): Urinalysis abnormal on admission and urine culture now growing Klebsiella which is pansensitive-start cephalexin 500 Mg p.o. twice daily x 3-day course-last day of tx 09/22/23 She did not think she had symptoms of such but was feeling weak and this could have been a symptom (10) Mood disorder: Continue fluoxetine (11) GERD with esophagitis: Continue PPI Plan VTE ppx: lovenox Code: DNR Dispo: PT/OT rec SNF - prefers to go to [facility] Discharge Exam Constitutional WD/WN, vitals as above Respiratory normal respiratory effort, lungs clear to auscultation Cardiovascular RRR, no murmur, no edema Gastrointestinal (Abdomen) normal bowel sounds, soft, nontender, no hepatosplenomegaly Psychiatric A+Ox3, euthymic affect Updated Medication List Medication Instructions Recorded Confirmed Type fluoxetine 40 mg capsule 40 mg PO QAM 08/12/20 09/17/23 History levothyroxine 25 mcg tablet 25 mcg PO QAM 08/12/20 09/17/23 History metoprolol succinate 50 mg 50 mg PO QAM 08/12/20 09/17/23 History tablet,extended release 24 hr denosumab 60 mg/mL subcutaneous 60 mg subcut Q180D 12/21/20 09/17/23 History syringe (Prolia) omeprazole 40 mg capsule,delayed 40 mg PO QAM 04/26/21 09/17/23 History release atorvastatin 20 mg tablet 20 mg PO DAILY 09/17/23 09/17/23 History acetaminophen 325 mg tablet 650 mg (2 x 325 mg) PO QID PRN 09/20/23 Rx pain #30 tabs cephalexin 500 mg capsule 500 mg PO BID #4 caps 09/20/23 Rx cyclobenzaprine 5 mg tablet 2.5 mg (1/2 x 5 mg) PO TID PRN 09/20/23 Rx muscle spasm #10 tabs lisinopril 20 mg tablet 10 mg (1/2 x 20 mg) PO QAM #15 tabs 09/20/23 Rx polyethylene glycol 3350 17 gram 17 g PO DAILY #30 ea 09/20/23 Rx oral powder packet (Miralax) Hospital Stay Data Consultations 09/17/23 05:22 ED Decision to Admit Stat Diagnostic Imagining Performed 09/17/23 02:47 CT cervical spine wo con Stat 09/17/23 02:48 CT head/brain wo con Stat 09/17/23 04:03 CT abd pelvis wo con Stat Pending Results Patient Have Any Pending Studies at Discharge: Yes (Parathyroid related protein,DEE level,Vit D 1,25-OH level) Discharge Instructions Given to Patient (Per Discharging Provider) You will need to complete the antibiotics for your UTI through 09/22 AM. You were found to have high calcium levels and should stop taking calcium supplementation and the HCTZ as these can cause high calcium levels. There are some blood tests that are still pending in the workup for your high calcium levels-your PCP can follow up on these for you. Your kidney function was low when you arrived and this improved with IV fluids- this was due to dehydration. You will need PT and OT to improve your strength and balance. Your lisinopril dose was reduced to 10mg daily. Total Time Total Time Spent Total Time Spent (In Minutes): 40 min Coding Level of Care Code 64121 INP/OBS DISCH >30 MIN Diagnoses Acute kidney injury N17.9 Hypokalemia E87.6 Fall W19.XXXA Hypercalcemia E83.52 Right hip pain M25.551 Hyperlipidemia E78.5 Hypertension I10 Hypothyroid E03.9 UTI (urinary tract infection) N39.0 Mood disorder F39 GERD with esophagitis K21.00
[2023-09-23 16:36] LABS: Vitamin D 1,25 20 pg/mL (18-72); Vitamin D2,1,25 <8 pg/mL; Vitamin D3,1,25 20 pg/mL
== END 2023-09-20 14:31 | DRG 683 ==
LOC: SUATTDRO → ED 02:24 → SUATTDRO 05:57 → EDINP 05:57 → 3N 07:36

== ENCOUNTER 2023-10-22 14:59 | Inpatient (IN) ==
--- NOTE | 2023-10-22 15:30 | Emergency Department Note ---
History of Present Illness General Chief complaint: Urinary Symptoms Stated complaint: WEAKNESS Time Seen by Provider: 10/22/23 15:14 History of Present Illness Maximum Pain Intensity: 8 NAME: YVONNE SMITH AGE: 73 SEX: F : 1950 ARRIVES VIA: Ambulance INFORMANT: Patient ED PROVIDER(S): KEIRY Tristan, Rita Tate MD The patient is a 73-year-old female who arrives to the emergency department via ems with her daughter for evaluation of weakness, confusion, decreased appetite, and bilateral lower extremity edema. The patient was recently admitted for an acute kidney injury, and discharged to the [facility] at the [facility] for fdc assistance she recently was returned to independent living this week, she reports she fell earlier in the week injuring her right posterior back. Today she arrives for increased weakness, decreased appetite throughout the last week, increasing confusion, and worsening of her lower extremity edema. She also is reporting dry heaving, with nausea and some abdominal pain. The daughter reports these are symptoms that were very similar to her previous illness and hospitalization. While she was in the atrium she was placed on hydrochlorothiazide which was stopped for a moment and then added again to her med list. She denies any other change in medications, there are no fevers, she denies any urinary symptoms. Home Medications Medication Instructions Recorded Confirmed Type fluoxetine 40 mg capsule 40 mg PO QAM 08/12/20 10/22/23 History levothyroxine 25 mcg tablet 25 mcg PO QAM 08/12/20 10/22/23 History metoprolol succinate 50 mg 50 mg PO QAM 08/12/20 10/22/23 History tablet,extended release 24 hr denosumab 60 mg/mL subcutaneous 60 mg subcut Q180D 12/21/20 10/22/23 History syringe (Prolia) omeprazole 40 mg capsule,delayed 40 mg PO QAM 04/26/21 10/22/23 History release atorvastatin 20 mg tablet 20 mg PO DAILY 09/17/23 10/22/23 History cyclobenzaprine 5 mg tablet 2.5 mg (1/2 x 5 mg) PO TID PRN 09/20/23 10/22/23 Rx muscle spasm #10 tabs polyethylene glycol 3350 17 gram 17 g PO DAILY #30 ea 09/20/23 10/22/23 Rx oral powder packet (Miralax) acetaminophen 500 mg tablet 1,000 mg PO BID PRN Pain 10/22/23 10/22/23 History (Tylenol Extra Strength) acetaminophen 500 mg tablet 1,000 mg PO DAILY 10/22/23 10/22/23 History (Tylenol Extra Strength) lisinopril 20 mg tablet 20 mg PO QAM 10/22/23 10/22/23 History Allergies Allergy/AdvReac Type Severity Reaction Status Date / Time amoxicillin AdvReac Intermediate Diarrhea Verified 09/17/23 03:04 ciprofloxacin AdvReac Intermediate CAUSED Verified 09/17/23 03:04 C-DIFF codeine AdvReac Intermediate NAUSEA/VOMI Verified 09/17/23 03:04 TING Past Med/Surg History Medical History Obesity Hx of Clostridium difficile infection years ago-tx Overactive bladder HX: breast cancer 1999, sx, chemo, radiation Cataract Hypertension Hyperlipidemia Hypothyroid Mood disorder "would get panic attacks, was put on fluoxetine to prevent" GERD with esophagitis Surgical History Hx of cataract extraction rt. History of total right hip arthroplasty History of lumbar surgery History of lumpectomy of right breast w/axillary dissection-nodes clear Hx of colonoscopy Hx of wisdom tooth extraction Hx of tonsillectomy Social History Smoking Status: Never smoker Tobacco Type: Cigarettes Second Hand Exposure: Yes (father smoked pipe); Do You Dip or Chew Tobacco: No; Hx Alcohol Use: No Hx Substance Use: No Preferred Language: Tunisian Communication Ability: Effective Customer Service Assistant Required: No Beliefs That Will Affect Care: None marital status: Current Living Situation: [facility] Current Living Situation Comment: independent living Feels Safe at Home: Yes Assistive Devices: Scooter/Electric Scooter and Walker Physical Exam Vital Signs Vital Signs - 24 hr 10/22/23 15:01 10/22/23 16:06 10/22/23 17:23 Temperature 36.5 C Temperature Source Oral Pulse Rate 100 H 93 H Pulse Rate [Apical] 96 H Pulse Rhythm Pulse Rhythm [Apical] Pulse Strength [Apical] Normal Respiratory Rate 18 19 Respiratory Effort / Characteristics Non-Labored Spontaneous Respiratory Depth Normal Respiratory Pattern Blood Pressure 135/90 Blood Pressure [Right Arm] 119/72 Blood Pressure Mean 105 Blood Pressure Mean [Right Arm] 87 Pulse Oximetry 94 92 Oxygen Delivery Method Room Air Nasal Cannula Oxygen Flow Rate Sepsis Recent Fever Within 48 Hours No Sepsis New/Unexplained Change in Mental Status No Sepsis Action Taken by Nursing No Action Required Oxygen Flow Rate - Titration Pulse Oximetry Post Tiitration 10/22/23 17:30 10/22/23 17:45 10/22/23 18:28 Temperature Temperature Source Pulse Rate 95 H Pulse Rate [Apical] 94 H Pulse Rhythm Regular Pulse Rhythm [Apical] Regular Pulse Strength [Apical] Normal Respiratory Rate 21 19 Respiratory Effort / Characteristics Non-Labored Spontaneous Respiratory Depth Normal Respiratory Pattern Regular Blood Pressure Blood Pressure [Right Arm] 124/86 Blood Pressure Mean Blood Pressure Mean [Right Arm] 98 Pulse Oximetry 88 L 99 100 Oxygen Delivery Method Room Air Nasal Cannula Nasal Cannula Oxygen Flow Rate 0 2 Sepsis Recent Fever Within 48 Hours Sepsis New/Unexplained Change in Mental Status Sepsis Action Taken by Nursing Oxygen Flow Rate - Titration 2 Pulse Oximetry Post Tiitration 94 10/22/23 19:53 Temperature Temperature Source Pulse Rate 93 H Pulse Rate [Apical] Pulse Rhythm Pulse Rhythm [Apical] Pulse Strength [Apical] Respiratory Rate Respiratory Effort / Characteristics Respiratory Depth Respiratory Pattern Blood Pressure Blood Pressure [Right Arm] Blood Pressure Mean Blood Pressure Mean [Right Arm] Pulse Oximetry Oxygen Delivery Method Oxygen Flow Rate Sepsis Recent Fever Within 48 Hours Sepsis New/Unexplained Change in Mental Status Sepsis Action Taken by Nursing Oxygen Flow Rate - Titration Pulse Oximetry Post Tiitration VITALS: Vitals are noted on the nurse's note and reviewed by myself. Vital signs stable. GENERAL: 73-year-old female, in no acute distress, nondiaphoretic, well- developed well-nourished. SKIN: The skin was without rashes, erythema, edema, or bruising. HEAD: Normocephalic atraumatic. NECK: Supple without nuchal rigidity. No lymphadenopathy. No thyromegaly. Cervical spine is nontender. No JVD. HEART: Regular rate and rhythm without murmurs gallops or rubs. LUNGS: Clear to auscultation bilaterally without wheezes, rales or rhonchi. No retractions or accessory muscle use. ABDOMEN: Positive bowel sounds x 4. Soft, nontender, without masses or organomegaly. Ivy sign negative. No guarding or rebound tenderness. Ecchymosis to the right posterior ribs. No significant tenderness to palpation. No CVA tenderness. MUSCULOSKELETAL: Bilateral lower extremity pitting edema +2, cellulitic rash to the right anterior rollins. Full range of motion without joint tenderness in all extremities. No tenderness to palpation. NEURO: Patient was alert and oriented to person place and time. No focal neurological deficits. Course Administered Medications Heparin Sodium (Porcine) (Heparin Sod 5,000 Unit/0.5 Ml Vial) 5,000 units SQ Q12 ELIO Stop: 11/21/23 20:59 Last Admin: 10/22/23 21:36 Dose: 5,000 units Documented By: MIGDALIA Discontinued Medications Sodium Chloride (Nss) 1,000 mls @ 125 mls/hr IV .Q8H STA Stop: 10/22/23 23:28 Last Admin: 10/22/23 16:01 Dose: 125 mls/hr Documented By: NALLELY Potassium Chloride (K Willem / Wtr) 10 meq in 100 mls @ 100 mls/hr IV Q1H ELIO Stop: 10/22/23 18:59 Last Infusion: 10/22/23 23:23 Dose: Infused Documented By: Admin: 10/22/23 18:56 Dose: 100 mls/hr Documented By: Infusion: 10/22/23 18:53 Dose: Infused Documented By: Admin: 10/22/23 17:53 Dose: 100 mls/hr Documented By: MIGDALIA Ceftriaxone Sodium (Rocephin) 2,000 mg in 50 mls @ 100 mls/hr IV NOW STA Stop: 10/22/23 18:20 Last Infusion: 10/22/23 18:56 Dose: Infused Documented By: Admin: 10/22/23 18:26 Dose: 100 mls/hr Documented By: MIGDALIA Magnesium Sulfate/Dextrose (Magnesium Sulfate / D5w) 1 gm in 100 mls @ 50 mls/hr IV Q2H ELIO Stop: 10/22/23 23:14 Last Infusion: 10/22/23 23:39 Dose: Infused Documented By: Admin: 10/22/23 21:36 Dose: 50 mls/hr Documented By: Infusion: 10/22/23 21:33 Dose: Infused Documented By: Admin: 10/22/23 19:31 Dose: 50 mls/hr Documented By: MIGDALIA Ioversol (Optiray 320 500ml) 87 ml IV ONCE ONE Stop: 10/22/23 17:36 Last Admin: 10/22/23 17:35 Dose: 87 ml Documented By: MASOOD Ondansetron HCl (Ondansetron Inj 2 Mg/Ml 2 Ml Vial) 4 mg IV NOW STA Stop: 10/22/23 15:30 Last Admin: 10/22/23 16:01 Dose: 4 mg Documented By: NALLELY Potassium Chloride (Potassium Chloride Crtab 20 Meq Tabcr) 40 meq PO NOW STA Stop: 10/22/23 19:11 Last Admin: 10/22/23 19:29 Dose: 40 meq Documented By: MIGDALIA Medical Decision Making Differential Diagnosis Infection, electrolyte abnormalities, cardiac sources, intracerebral event, neurologic, trauma, as well as other pathologies. Medical Records Attestation: I reviewed the patient's medical records. Home Medications Current Medication List: was personally reviewed by me Laboratory Data Attestation: I reviewed the patient's lab results. Leukocytosis, 10.93, stable hemoglobin and hematocrit, hypokalemia 2.6, troponin 18.7, BNP 62, lactate 1.3, urine positive for infection. 10/22/23 15:40 10/22/23 21:33 Lab Results 10/22/23 10/22/23 10/22/23 Range/Units 15:40 16:57 17:20 WBC 10.93 H (4.8-10.8) K/ul RBC 3.62 L (4.20-5.40) M/uL Hgb 11.0 L (12.0-16.0) g/dl Hct 32.7 L (37.0-47.0) % MCV 90.3 (80.0-100.0) fL MCH 30.4 (25.0-34.0) pg MCHC 33.6 (32.0-36.0) g/dL RDW Std Deviation 50.0 H (36.4-46.3) fL RDW Coeff of Desmond 15.2 H (11.5-14.5) % Plt Count 320 (130-400) K/uL MPV 9.9 (9.4-12.4) fL Immature Gran % (Auto) 0.5 % Neut % (Auto) 74.4 % Lymph % (Auto) 9.2 % Beauregard % (Auto) 12.9 % Eos % (Auto) 2.5 % Baso % (Auto) 0.5 % Neut # (Auto) 8.12 H (1.40-6.50) K/uL Lymph # (Auto) 1.01 L (1.20-3.40) K/uL Beauregard # (Auto) 1.41 H (0.11-0.59) K/uL Eos # (Auto) 0.27 (0.00-0.50) K/uL Baso # (Auto) 0.06 (0.00-0.20) K/uL Immature Gran # (Auto) 0.06 (0.01-0.20) K/uL Sodium 137 (136-145) mmol/L Potassium 2.6 L (3.5-5.1) mmol/L Chloride 100 (98-107) mmol/L Carbon Dioxide 29 (21-32) mmol/L Anion Gap 8 (3-11) BUN 20 (6-23) mg/dl Creatinine 0.75 (0.6-1.2) mg/dl Est Cr Clr Drug Dosing 76.5 ml/min Est GFR ( Amer) 91.0 ml/min Est GFR (Non-Af Amer) 78.5 ml/min BUN/Creatinine Ratio 26.7 H (10-20) Glucose 115 H (70-99(Fasting)) mg/dl Lactate 1.3 (0.4-2.0) mmol/L Calcium 10.7 H (8.6-10.3) mg/dl Magnesium 1.4 L (1.7-2.4) mg/dl Total Bilirubin 0.9 (0.2-1.0) mg/dl AST 32 (13-39) U/L ALT 10 (7-52) U/L Alkaline Phosphatase 73 (34-104) U/L Troponin I High Sens 18.7 H (0-14) pg/ml B-Natriuretic Peptide 62 (0-100) pg/ml Total Protein 5.9 L (6.0-8.3) gm/dl Albumin 3.3 L (3.4-5.0) gm/dl Globulin 2.6 (2.5-4.0) gm/dl Albumin/Globulin Ratio 1.3 (0.9-2) Lipase 17 (11-82) U/L Urine Color Yellow Urine Appearance Turbid A (Clear) Urine pH 7.0 (4.5-7.5) Ur Specific [place] 1.025 (1.000-1.030) Urine Protein Trace H (Negative) Urine Glucose (UA) Negative (Negative) Urine Ketones Negative (Negative) Urine Blood Negative (Negative) Urine Nitrite Positive A (Negative) Urine Bilirubin Negative (Negative) Urine Urobilinogen Negative (Negative) Ur Leukocyte Esterase Negative (Negative) Urine WBC (Auto) 5-10 H (0-5) /hpf Urine RBC (Auto) 0-4 (0-4) /hpf U Hyaline Cast (Auto) 5-10 H (0-5) /lpf U Epithel Cells (Auto) 10-20 H (0-5) /lpf Urine Bacteria (Auto) 4+ H (Negative) Imaging Data Attestation: I personally reviewed and interpreted this imaging study as follows: My Impression: Initial x-ray interpretation per myself shows no acute cardiopulmonary abnormality, no evidence of posterior right rib fractures. Will await formal radiology report. Radiologist's Impression: Ribs w/Chest X-Ray 10/22/23 15:29 XR ribs RT min 2V w CXR1V CLINICAL HISTORY: fall COMPARISON: Chest radiograph September 17, 2023. FINDINGS: There is no pneumothorax or pleural effusion. Right axillary surgical clips. No airspace opacities are present. There is a healing nondisplaced anterior right sixth rib fracture. No additional right-sided rib fractures are present. Right hilar prominence is likely due to pulmonary vessels. IMPRESSION: No pneumothorax. Healing nondisplaced anterior right sixth rib fracture. This fracture is likely subacute. ACT 112: Negative or not required by law. Electronically signed by: Jeremias Busby M.D. 10/22/2023 4:18 PM Abdomen/Pelvis CT 10/22/23 15:30 CT OF THE ABDOMEN AND PELVIS WITH CONTRAST CLINICAL HISTORY: dry heaving and abdominal pain COMPARISON STUDY: CT of the abdomen and pelvis September 17, 2023. TECHNIQUE: Following IV administration of 87 mL of Optiray, axial images of the abdomen and pelvis were obtained from the lung bases to the proximal femurs. Images were reviewed in the axial, sagittal, and coronal planes. IV contrast was administered without complication. Automated exposure control was utilized for the study. A dose lowering technique was utilized adhering to the principles of ALARA. CT DOSE: 1264.65 mGy.cm FINDINGS: No pneumatosis, free air or portal venous gas is present. There are no hepatic lesions. There is no biliary or pancreatic ductal dilatation. The gallbladder is mildly distended. This is unchanged. Spleen, adrenal glands, kidneys and pancreas are unremarkable. There is no hydronephrosis. Calcified fibroids are again noted. There is no evidence for a bowel obstruction. The appendix is normal. There is no lymphadenopathy. No ascites. No fluid collections are present. Healing nondisplaced anterior right sixth rib fracture is present. There is a mild compression fracture of the superior endplate of L1 which is new since CT of September 17, 2023. Otherwise, the appearance of the lumbar spine is unchanged following L2-L5 decompression and fusion. Lucency adjacent to the bilateral L2 pedicle screws is unchanged. Left pedicle screw slightly extends into the disc space. This is unchanged. No acute pelvic or hip fractures present. IMPRESSION: 1. Normal appendix. No bowel obstruction. No bowel wall thickening. 2. Subacute healing nondisplaced anterior right sixth rib fracture. 3. Mild compression fracture of the superior endplate of L1 which is new since CT of September 17, 2023. Stable postoperative findings within the lumbar spine, as described above. ACT 112: Negative or not required by law. Electronically signed by: Jeremias Busby M.D. 10/22/2023 6:05 PM ECG Data Attestation: I personally reviewed and interpreted this ECG as follows: Indication: + altered mental status Rate (beats per minute): 96 Rhythm: + normal sinus ECG Findings: + PACs Blood Pressure Blood Pressure Findings: Elevated blood pressure MDM Narrative Patient is a 73-year-old female who arrives to the emergency department with her daughter for the above-stated complaint. Upon examination the patient is describing a recent fall after being discharged from fdc facility back to independent living. The daughter is stating the patient has had increased confusion, and symptoms consistent with her previous hospital admission 30 days ago. Her daughter reports she is concerned for decreased p.o. intake due to her nausea and dry heaving. A saline lock was established, CBC, CMP, lipase, troponin, lactate as well as urinalysis, and x-ray of the chest with right ribs was obtained. CT of the abdomen and pelvis with IV contrast was ordered due to the patient's nausea, vomiting, and diffuse tenderness to palpation. EKG shows normal sinus at a rate of 96 with PACs present. CBC shows stable hemoglobin and hematocrit, leukocytosis at 10.93, hypokalemia 2.7 troponin 18.7, BNP 62, lactate 1.3, urine positive for infection. The patient was provided with 2 doses of 10 mEq potassium via IV, normal saline maintenance at 125/h, and 2 g of IV Rocephin to cover the right lower extremity cellulitis as well as the urinary tract infection. Case management was contacted for admission at that time. The patients care was discussed with Dr. Cox, who took over care of the patient. The patient's case was discussed with Dr. Tate, who agreed with my evaluation and treatment plan. Continuous furniture sprayer: Order was placed for continuous furniture sprayer. Patient was placed on the furniture sprayer. Patient was noted to be in NSR at an initial rate of 93 bpm. Impression & Plan UTI (urinary tract infection), Cellulitis, Acute hypokalemia Discharge Plan Visit Data Chief Complaint: Urinary Symptoms Stated Complaint: WEAKNESS ED Provider: Rita Tate ED Midlevel Provider: Juliana Pierre Discharge Problem: UTI (urinary tract infection), Cellulitis, Acute hypokalemia Discharge Problem: UTI (urinary tract infection) Qualifiers: Urinary tract infection type: acute cystitis Hematuria presence: without hematuria Qualified Code(s): N30.00 - Acute cystitis without hematuria Cellulitis Qualifiers: Site of cellulitis: extremity Site of cellulitis of extremity: lower extremity Laterality: right Qualified Code(s): L03.115 - Cellulitis of right lower limb
[2023-10-22 15:57] LABS: Basophils # (auto) 0.06 K/uL (0.00-0.20); Basophils % (auto) 0.5 %; Eosinophils # (auto) 0.27 K/uL (0.00-0.50); Eosinophils % (auto) 2.5 %; Hematocrit (blood only) 32.7 % (37.0-47.0); Immature Granulocytes # (auto) 0.06 K/uL (0.01-0.20); Immature Granulocytes % (auto) 0.5 %; Lymphocytes # (auto) 1.01 K/uL (1.20-3.40); Lymphocytes % (auto) 9.2 %; Mean Corpuscular Hemoglobin 30.4 pg (25.0-34.0); Mean Corpuscular Hgb Conc 33.6 g/dL (32.0-36.0); Mean Corpuscular Volume 90.3 fL (80.0-100.0); Mean Platelet Volume 9.9 fL (9.4-12.4); Monocytes # (auto) 1.41 K/uL (0.11-0.59); Monocytes % (auto) 12.9 %; Neutrophils # (auto) 8.12 K/uL (1.40-6.50); Neutrophils % (auto) 74.4 %; Platelet Count 320 K/uL (130-400); RDW Coefficient of Variation 15.2 % (11.5-14.5); Red Blood Count 3.62 M/uL (4.20-5.40); White Blood Count 10.93 K/ul (4.8-10.8)
[2023-10-22] MEDS: ONDANSETRON INJ 2 MG/ML 2 ML VIAL IV STA (16:01)
[2023-10-22] MEDS: SODIUM CHLORIDE 0.9% 1,000 ML IV STA (16:01)
[2023-10-22 16:13] LABS: Albumin Globulin Ratio 1.3 (0.9-2); Albumin Level 3.3 gm/dl (3.4-5.0); BUN Creatinine Ratio 26.7 (10-20); Bilirubin,Total 0.9 mg/dl (0.2-1.0); Calcium 10.7 mg/dl (8.6-10.3); Creatinine Clr Calc Pharmacy 76.5 ml/min; Est GFR (Non-African American) 78.5 ml/min; Globulin 2.6 gm/dl (2.5-4.0); Potassium 2.6 mmol/L (3.5-5.1); Total Protein 5.9 gm/dl (6.0-8.3)
--- NOTE | 2023-10-22 16:19 | XRay Report ---
XR ribs RT min 2V w CXR1V CLINICAL HISTORY: fall COMPARISON: Chest radiograph September 17, 2023. FINDINGS: There is no pneumothorax or pleural effusion. Right axillary surgical clips. No airspace o pacities are present. There is a healing nondisplaced anterior right sixth rib fracture. No additiona l right-sided rib fractures are present. Right hilar prominence is likely due to pulmonary vessels. IMPRESSION: No pneumothorax. Healing nondisplaced anterior right sixth rib fracture. This fracture is likely subacute. ACT 112: Negative or not required by law. Electronically signed by: Jeremias Busby M.D. 10/22/2023 4:18 PM
[2023-10-22 16:20] LABS: Troponin I High Sensitivity 18.7 pg/ml (0-14)
--- NOTE | 2023-10-22 17:18 | Emergency Department Note ---
ED Visit Note I was consulted by the Advanced Practice Provider, KEIRY Tristna. I performed a substantive portion of the visit. This includes aspects of: History: Patient is a 73-year-old female presenting with weakness and lower extremity edema. She reportedly fell earlier this week. She is having increased weakness and decreased appetite throughout the last week and reportedly is having increased confusion. Also been having some lower abdominal pain and dry heaving. MDM: - Laboratory workup interpreted by myself showed leukocytosis (WBC 10.93) with left shift; hypokalemia (K 2.6); normal lactate; normal BNP; normal magnesium; slightly elevated troponin (18.7); normal lipase - UA showed evidence of infection. Given 2g IV rocephin - CXR negative for pneumonia, per my interpretation - CT abdomen/pelvis with IV contrast shows non-displaced anterior right 6th rib fracture. - Patient 1L NS and 4 mg IV zofran in ER. - Given 20 mEq IV potassium for replacement. - Given patient's recurrent falls, UTI and hypokalemia, will admit to hospitalist service. .
[2023-10-22] MEDS: OPTIRAY 320 500ml IV ONE (17:35)
[2023-10-22 17:41] LABS: Appearance Urine Turbid (Clear); Bacteria Urine Automated 4+ (Negative); Bilirubin Urine Negative (Negative); Blood Urine Negative (Negative); Color Urine Yellow; Glucose Urine UA Negative (Negative); Ketones Urine Negative (Negative); Leukocyte Esterase Urine Negative (Negative); Nitrite Urine Positive (Negative); Protein Urine Trace (Negative); RBC Urine Automated 0-4 /hpf (0-4); Specific Gravity Urine 1.025 (1.000-1.030); Urobilinogen Urine Negative (Negative)
[2023-10-22 17:49] LABS: Magnesium 1.4 mg/dl (1.7-2.4)
[2023-10-22] MEDS: POTASSIUM CHLORIDE / WTR 10 MEQ/100 ML PLCT IV SCH (17:53)
--- NOTE | 2023-10-22 18:07 | CT Scan Report ---
CT OF THE ABDOMEN AND PELVIS WITH CONTRAST CLINICAL HISTORY: dry heaving and abdominal pain COMPARISON STUDY: CT of the abdomen and pelvis September 17, 2023. TECHNIQUE: Following IV administration of 87 mL of Optiray, axial images of the abdomen and pelvis we re obtained from the lung bases to the proximal femurs. Images were reviewed in the axial, sagittal, and coronal planes. IV contrast was administered without complication. Automated exposure control wa s utilized for the study. A dose lowering technique was utilized adhering to the principles of ALARA . CT DOSE: 1264.65 mGy.cm FINDINGS: No pneumatosis, free air or portal venous gas is present. There are no hepatic lesions. The re is no biliary or pancreatic ductal dilatation. The gallbladder is mildly distended. This is unchan ged. Spleen, adrenal glands, kidneys and pancreas are unremarkable. There is no hydronephrosis. Calci fied fibroids are again noted. There is no evidence for a bowel obstruction. The appendix is normal. There is no lymphadenopathy. No ascites. No fluid collections are present. Healing nondisplaced anter ior right sixth rib fracture is present. There is a mild compression fracture of the superior endplat e of L1 which is new since CT of September 17, 2023. Otherwise, the appearance of the lumbar spine is u nchanged following L2-L5 decompression and fusion. Lucency adjacent to the bilateral L2 pedicle screw s is unchanged. Left pedicle screw slightly extends into the disc space. This is unchanged. No acute pelvic or hip fractures present. IMPRESSION: 1. Normal appendix. No bowel obstruction. No bowel wall thickening. 2. Subacute healing nondisplaced anterior right sixth rib fracture. 3. Mild compression fracture of the superior endplate of L1 which is new since CT of September 17, 2023 . Stable postoperative findings within the lumbar spine, as described above. ACT 112: Negative or not required by law. Electronically signed by: Jeremias Busby M.D. 10/22/2023 6:05 PM
[2023-10-22] MEDS: cefTRIAXone SODIUM 2,000 MG/50 ML BAG IV STA (18:26)
--- NOTE | 2023-10-22 18:33 | History & Physical Report ---
Date of Service October 22, 2023 Assessment & Plan (1) UTI (urinary tract infection): Plan: Previous UC 09/2023 with pansensitive Klebsiella UA on admission with positive nitrates, 4+ bacteria, + urinary frequency - Ceftriaxone 2g given in ER CXR: NAF, healing 6th rib fracture - Currently requiring 2L NC, wean as able NSS @125/hr Follow urine culture Elevated trop 18.7, recheck in 6 hours PT/OT (2) Hypercalcemia: Plan: - HCTZ restarted by outside facility, after discontinued at discharge in September. ---> if pt needs diuretics recommend lasix - discontinue CA/Vit D supplementation DEE level and Parathryoid related protein level checked last admission Ca 10.7 on admission AM BMP (3) Cellulitis: Plan: R LE with mild erythema and warm to touch, nontender - on CTX as above for UTI (4) Hypertension: Plan: continue home metoprolol - lisinopril decreased to 10mg given recommendation at last discharge and hx of REEMA (5) Hypothyroid: Plan: Continue synthroid TSH WNL 09/2023 (6) Compression fracture of L1 vertebra: Plan: Noted on CT scan, new from 09/2023 Patient does report low back pain, lidocaine patch helps - continue Flexeril Plan Dispo: admit to med/tele Code status: DNR, I discussed this with patient and daughter at beside DVT proh: heparin q 12 History of Present Illness Chief Complaint: weakness, decreased appetite. Primary Care Provider: [facility] t is a 73 yo female with PMH of breast cancer in 1999 s/p chemo and radiation, HTN, HLD, and hypothyroidism presenting due to weakness. Pt resides at the [facility]. Daughter present at bedside. Patient evaluated in room C6. Recent admission last month for REEMA was discharged to [facility] for rehab, about a week ago. Since then she has not felt well - reports weakness and decreased appetite. Has been taking all of her medications. Of note Caltrate Vit D and HCTZ were restarted by the outside facility, after being discontinued at discharge from the hospital. Denies urgency or burning, but does report frequency. Denies fevers, possible chills. Reports dry heaving this morning but no vomiting. Bruise on her back, patient did not know it was there, but does not recall recent falls. ? cellulitis on Right leg Med list from [facility] fluoxetine hctz levothyroxine lisinopril metoprolol omeprazole Catrate vit D prolia atorvastatin Allergies Allergy/AdvReac Type Severity Reaction Status Date / Time amoxicillin AdvReac Intermediate Diarrhea Verified 09/17/23 03:04 ciprofloxacin AdvReac Intermediate CAUSED Verified 09/17/23 03:04 C-DIFF codeine AdvReac Intermediate NAUSEA/VOMI Verified 09/17/23 03:04 TING Home Medications Medication Instructions Recorded Confirmed Type fluoxetine 40 mg capsule 40 mg PO QAM 08/12/20 10/22/23 History levothyroxine 25 mcg tablet 25 mcg PO QAM 08/12/20 10/22/23 History metoprolol succinate 50 mg 50 mg PO QAM 08/12/20 10/22/23 History tablet,extended release 24 hr denosumab 60 mg/mL subcutaneous 60 mg subcut Q180D 12/21/20 10/22/23 History syringe (Prolia) omeprazole 40 mg capsule,delayed 40 mg PO QAM 04/26/21 10/22/23 History release atorvastatin 20 mg tablet 20 mg PO DAILY 09/17/23 10/22/23 History cyclobenzaprine 5 mg tablet 2.5 mg (1/2 x 5 mg) PO TID PRN 09/20/23 10/22/23 Rx muscle spasm #10 tabs polyethylene glycol 3350 17 gram 17 g PO DAILY #30 ea 09/20/23 10/22/23 Rx oral powder packet (Miralax) acetaminophen 500 mg tablet 1,000 mg PO BID PRN Pain 10/22/23 10/22/23 History (Tylenol Extra Strength) acetaminophen 500 mg tablet 1,000 mg PO DAILY 10/22/23 10/22/23 History (Tylenol Extra Strength) lisinopril 20 mg tablet 20 mg PO QAM 10/22/23 10/22/23 History Past Med/Surg History Medical History Obesity Hx of Clostridium difficile infection years ago-tx Overactive bladder HX: breast cancer 1999, sx, chemo, radiation Cataract Hypertension Hyperlipidemia Hypothyroid Mood disorder "would get panic attacks, was put on fluoxetine to prevent" GERD with esophagitis Surgical History Hx of cataract extraction rt. History of total right hip arthroplasty History of lumbar surgery History of lumpectomy of right breast w/axillary dissection-nodes clear Hx of colonoscopy Hx of wisdom tooth extraction Hx of tonsillectomy Social History Smoking Status: Never smoker Tobacco Type: Cigarettes Second Hand Exposure: Yes (father smoked pipe); Do You Dip or Chew Tobacco: No; Hx Alcohol Use: No Hx Substance Use: No Preferred Language: Italian Communication Ability: Effective Epic [employer] Required: No Beliefs That Will Affect Care: None marital status: Current Living Situation: Assisted Current Living Situation Comment: independent living Feels Safe at Home: Yes Assistive Devices: Scooter/Electric Scooter and Walker Review of Systems Review of Systems: All systems reviewed & are unremarkable except as noted in HPI & below Physical Exam Physical Exam: General: NAD, VS as above Resp: normal respiratory effort, lungs clear to auscultation. Currently on 2L NC CV: RRR, no murmur, Abd: normal bowel sounds, non tender, no hepatosplenomegaly Extremities: Moves all extremities, no edema Neuro: A&O x3, Skin: bruise over right back/shoulder area, appears at least 5 days old. Mild erythema right rollins, warm to touch Results & Data Results & Data Vital Signs (Past 12 Hours) Vital Signs Temp Pulse Pulse Resp BP BP Pulse Ox 10/22/23 18:28 94 H 19 124/86 100 10/22/23 17:45 95 H 21 99 10/22/23 17:30 88 L 10/22/23 17:23 96 H 19 119/72 92 10/22/23 16:06 93 H 10/22/23 15:01 36.5 C 100 H 18 135/90 94 O2 Del Method O2 Flow Rate 10/22/23 18:28 Nasal Cannula 2 10/22/23 17:45 Nasal Cannula 10/22/23 17:30 Room Air 0 10/22/23 17:23 Nasal Cannula 10/22/23 16:06 10/22/23 15:01 Room Air Laboratory Results CBC and chemistry, lactate, troponin Supervising Physician Co-Signing Physician Notes Patient seen and examined, chart reviewed, case discussed with Rizwana Sykes and I agree with the assessment and plan as above except as otherwise noted Labs and images reviewed 73yo F recent with admission for weakness and hypercalcemia. Has felt poorly with chills and frequency for 7 days. At bedside no abdominal pain UTI on admit, K 2.7. +50meq total repletion ordered. REpeat BMP pending post repletion. Received rocephin in ER for infected appearing UA with sx consistent with uti. no hx resistant infections. Rocephin continued UC pending. Patient potassium repleted, trended . heparin for DVT ppx. HCTZ mistakenly resumed by outside facility, dc this and make clear on discharge. Mild compression fxr at L1 new since 09/2023, pain improved with lidocaine patch. May add calcitonin nasal if needed for pain control, deferred on admit. At bedside lungs are clear, no acute distress, abdomen is nontender . Expresses some concern about having been at the [facility] previously, and currently has no energy or appetite. Otherwise no acute concerns. Agree with assessment and management as above PG Care Time/CCT Total # of Minutes Spent Total Time Spent with Patient: Total time spent is greater than 50% in coordination of care (as documented) at patient's floor/unit and/or counseling patient: Coding Level of Care Code 99664 INT INP/OBS CARE MIN Diagnoses UTI (urinary tract infection) N39.0 Hypercalcemia E83.52 Cellulitis L03.90 Hypertension I10 Hypothyroid E03.9 Compression fracture of L1 vertebra S32.010A
[2023-10-22] MEDS: POTASSIUM CHLORIDE CRTAB 20 MEQ TABCR PO STA (19:29)
[2023-10-22] MEDS: MAGNESIUM SULFATE / D5W 1 GM/100 ML BAG IV SCH (19:31)
[2023-10-22] MEDS: HEPARIN SOD 5,000 UNIT/0.5 ML VIAL SQ SCH (21:36)
[2023-10-22 22:00] LABS: BUN Creatinine Ratio 25.8 (10-20); Calcium 10.3 mg/dl (8.6-10.3); Creatinine Clr Calc Pharmacy 92.6 ml/min; Est GFR (Non-African American) 88.8 ml/min; Potassium 2.9 mmol/L (3.5-5.1)
[2023-10-22] MEDS ORDERED: ONDANSETRON INJ 2 MG/ML 2 ML VIAL IV PRN (22:51)
[2023-10-22] MEDS ORDERED: DOCUSATE SODIUM 100 MG CAP PO PRN (22:51)
[2023-10-22] MEDS ORDERED: CYCLOBENZAPRINE HCL 5 MG TAB PO PRN (22:51)
[2023-10-23 04:17] LABS: Basophils # (auto) 0.09 K/uL (0.00-0.20); Basophils % (auto) 1.1 %; Eosinophils # (auto) 0.58 K/uL (0.00-0.50); Eosinophils % (auto) 6.8 %; Hematocrit (blood only) 33.3 % (37.0-47.0); Hemoglobin 11.1 g/dl (12.0-16.0); Immature Granulocytes # (auto) 0.06 K/uL (0.01-0.20); Immature Granulocytes % (auto) 0.7 %; Lymphocytes % (auto) 10.6 %; Mean Corpuscular Hemoglobin 30.6 pg (25.0-34.0); Mean Corpuscular Hgb Conc 33.3 g/dL (32.0-36.0); Mean Corpuscular Volume 91.7 fL (80.0-100.0); Mean Platelet Volume 9.9 fL (9.4-12.4); Monocytes # (auto) 1.25 K/uL (0.11-0.59); Monocytes % (auto) 14.7 %; Neutrophils # (auto) 5.63 K/uL (1.40-6.50); Neutrophils % (auto) 66.1 %; Platelet Count 301 K/uL (130-400); RDW Coefficient of Variation 15.3 % (11.5-14.5); RDW Standard Deviation 51.2 fL (36.4-46.3); Red Blood Count 3.63 M/uL (4.20-5.40); White Blood Count 8.51 K/ul (4.8-10.8)
[2023-10-23 04:32] LABS: BUN Creatinine Ratio 23.2 (10-20); Calcium 10.2 mg/dl (8.6-10.3); Creatinine Clr Calc Pharmacy 83.2 ml/min; Est GFR (African American) 99.4 ml/min; Est GFR (Non-African American) 85.8 ml/min; Potassium 2.8 mmol/L (3.5-5.1)
[2023-10-23] MEDS: LEVOTHYROXINE SODIUM 25 MCG TABLET PO SCH (07:27)
[2023-10-23] MEDS: ATORVASTATIN 20 MG TAB PO SCH (08:04)
[2023-10-23] MEDS: lisinopril 10 MG TAB PO SCH (08:04)
[2023-10-23] MEDS: FLUoxetine HCL 20 MG CAP PO SCH (08:04)
[2023-10-23] MEDS: POLYETHYLENE (MIRALAX) 17 GM PACK PO SCH (08:05)
[2023-10-23] MEDS: METOPROLOL SUCC 50MG EXT REL TAB PO SCH (08:05)
[2023-10-23] MEDS: PANTOprazole 40 MG TAB PO SCH (08:05)
[2023-10-23] MEDS ORDERED: cefTRIAXone SODIUM 1,000 MG in DEXTROSE 5 % MINI-B 50 ML IV SCH (08:45)
--- NOTE | 2023-10-23 10:52 | Electrocardiogram Report ---
Test Reason : Blood Pressure : / mmHG Vent. Rate : 097 BPM Atrial Rate : 097 BPM P-R Int : 156 ms QRS Dur : 082 ms QT Int : 376 ms P-R-T Axes : 002 007 043 degrees QTc Int : 477 ms Sinus rhythm with Premature supraventricular complexes with aberrant conduction Otherwise normal ECG Confirmed by Isael Solares ([id number]) on 10/23/2023 10:51:47 AM Referred By: [facility] Confirmed By:Clint Solares
--- NOTE | 2023-10-23 10:58 | Electrocardiogram Report ---
Test Reason : Blood Pressure : / mmHG Vent. Rate : 096 BPM Atrial Rate : 096 BPM P-R Int : 182 ms QRS Dur : 076 ms QT Int : 366 ms P-R-T Axes : 040 022 038 degrees QTc Int : 462 ms Sinus rhythm with Premature atrial complexes with PVC Nonspecific ST abnormality Otherwise normal ECG When compared with ECG of 17-SEP-2023 02:32, Premature ventricular complexes are no longer Present ST no longer depressed in Lateral leads T wave inversion no longer evident in Lateral leads Confirmed by Isael Solares ([id number]) on 10/23/2023 10:57:54 AM Referred By: Confirmed By:Clint Solares
[2023-10-23] MEDS: POTASSIUM CHLORIDE / WTR 10 MEQ/100 ML PLCT IV SCH (11:24)
[2023-10-23] MEDS: POTASSIUM CHLORIDE CRTAB 20 MEQ TABCR PO STA (12:49)
[2023-10-23] MEDS: LIDOCAINE 5% 1 PATCH TD SCH ×2 (13:02→15:53)
--- NOTE | 2023-10-23 14:25 | Hospitalist Progress Note ---
Date of Service October 23, 2023 Assessment & Plan (1) UTI (urinary tract infection): Plan: Previous urine culture on 09/17/2023 with pansensitive Klebsiella UA on admission with positive nitrates, 4+ bacteria, + urinary frequency Ceftriaxone 2g given in ER CXR: Healing nondisplaced anterior right sixth rib fracture, likely subacute. Currently requiring 2L NC, wean as able Elevated trop 18.7, recheck remained stable. Most likely due to demand ischemia. Urine culture -- preliminary results show gram-negative bacilli Continue ceftriaxone 2 g (last dose on 10/28/2023) CT head/brain without contrast --no acute intracranial abnormality. (2) Acute hypokalemia: Plan: Potassium 2.6 on admission 60 mEq total repletion given in ED -- K increased to 2.8 Another 60 mEq total repletion given on 10/23/2023 -- K increased to 3.5 Magnesium 1.4 on admission. 1g x2 bags given in ED -- Mag WNL at 2.0 on 10/23/2023 (3) Hypercalcemia: Plan: HCTZ restarted by outside facility, after discontinued at discharge in September Consider Lasix if patient needs diuretics Discontinue CA/Vit D supplementation DEE level and Parathryoid related protein level checked last admission Ca elevated at 10.7 on admission Calcium WNL at 10.2 on 10/23/2023 (4) Cellulitis: Plan: R LE with mild erythema and warm to touch, nontender Continue ceftriaxone as above for UTI (5) Hypertension: Plan: Continue home metoprolol Lisinopril decreased to 10mg given recommendation at last discharge and hx of REEMA (6) Hypothyroid: Plan: Continue synthroid TSH WNL 09/2023 (7) Compression fracture of L1 vertebra: Plan: Noted on CT scan, new from 09/2023 Patient does report low back pain, lidocaine patch helps Continue Flexeril Continue lidocaine patch Ordered Calcitonin nasal spray PRN for additional pain control Plan Code status: DNR, I discussed this with patient and daughter at beside DVT proh: heparin q 12 Admission and Anticipated Discharge Date Admission Date: October 22, 2023 Subjective Patient seen and evaluated at bedside with daughter, still in the ED. She reports that she feels more alert today. She still does not have much of an appetite and still has weakness. She continues to endorse back pain, but says the pain is improved with the lidocaine patch. Her daughter revealed that she discovered this morning that the patient had an unwitnessed fall on Monday with unknown head strike. Patient reports that she has some visual changes while wearing her glasses, but denies visual changes otherwise. She believes this may be due to "fidgeting with her glasses while wearing them". She denies any other focal neurological findings including headache, neck pain, numbness, tingling, confusion, or balance issues. However, given the new onset of retching prior to admission, recent weakness, and unreliable visual changes, a CT of the head and brain were ordered to rule out a bleed. Results showed no acute intracranial abnormality. Patient is tolerating ceftriaxone and potassium repletion well. Physical Exam Physical Exam: General: No acute distress, well-developed, well-nourished Resp: Currently on 2L NC, clear to auscultation bilaterally without wheezes, rales, or rhonchi. Normal respiratory effort CV: RRR, no murmur, gallops, or rubs Abd: Soft, nontender, bowel sounds present, no guarding or rebound tenderness Extremities: Mild nonpitting edema in the lower extremities bilaterally Neuro: A&O x3 Skin: Ecchymosis to the right posterior ribs, without significant tenderness to palpation. Mild erythema on anterior right lower extremity, warm to touch Results & Data Results & Data Vital Signs (Past 12 Hours) Vital Signs Temp Pulse Pulse Resp BP BP Pulse Ox 10/23/23 07:31 37.0 C 99 H 20 108/70 94 10/23/23 07:29 95 H 10/23/23 07:29 10/23/23 06:01 99 H 27 H 97 10/23/23 06:01 150/85 H 10/23/23 06:00 94 H 22 95 10/23/23 05:00 91 H 19 95 10/23/23 04:49 94 H 18 140/91 98 10/23/23 04:45 140/91 10/23/23 04:45 98 H 20 95 10/23/23 04:00 94 H 24 95 10/23/23 03:00 91 H 24 93 10/23/23 03:00 109/65 10/23/23 02:57 10/23/23 02:57 37.2 C 93 H 14 113/72 94 10/23/23 02:30 92 H 22 95 10/23/23 02:30 113/72 Pulse Ox O2 Del Method O2 Del Method O2 Flow Rate O2 Flow Rate 10/23/23 07:31 Nasal Cannula 2 10/23/23 07:29 10/23/23 07:29 96 Nasal Cannula 2 10/23/23 06:01 10/23/23 06:01 10/23/23 06:00 10/23/23 05:00 10/23/23 04:49 Nasal Cannula 2 10/23/23 04:45 10/23/23 04:45 10/23/23 04:00 10/23/23 03:00 10/23/23 03:00 10/23/23 02:57 Nasal Cannula 2 10/23/23 02:57 Nasal Cannula 2 10/23/23 02:30 10/23/23 02:30 Laboratory Results Reviewed CBC Reviewed CMP Reviewed urine culture Diagnostic Findings Ordered CT head/brain without contrast (1) UTI (urinary tract infection) Hematuria presence: without hematuria Urinary tract infection type: acute cystitis Qualified Code(s): N30.00 - Acute cystitis without hematuria (4) Cellulitis Laterality: right Site of cellulitis: extremity Site of cellulitis of extremity: lower extremity Qualified Code(s): L03.115 - Cellulitis of right lower limb (5) Hypertension Hypertension type: primary hypertension Qualified Code(s): I10 - Essential (primary) hypertension (6) Hypothyroid Hypothyroidism type: unspecified Qualified Code(s): E03.9 - Hypothyroidism, unspecified (7) Compression fracture of L1 vertebra Encounter type: initial encounter Qualified Code(s): S32.010A - Wedge compression fracture of first lumbar vertebra, initial encounter for closed fracture
--- NOTE | 2023-10-23 15:18 | CT Scan Report ---
HEAD CT NONCONTRAST CT DOSE: 547.75 mGy.cm HISTORY: recent fall, unknown headstrike TECHNIQUE: Multiaxial CT images of the head were performed without the use of intravenous contrast. A utomated exposure control was utilized for this study. A dose lowering technique was utilized adheri ng to the principles of ALARA. Comparison: Head CT 09/17/2023. Findings: The paranasal sinuses and mastoid air cells are clear. The calvarium and skull base are int act. There is no mass, hematoma, midline shift, acute infarct. White matter hypodensity is nonspecifi c but suggestive of microvascular ischemic change. The ventricles and sulci demonstrate mild age-rela candace involutional changes. Impression: No acute intracranial abnormality. ACT 112: Negative or not required by law. Electronically signed by: Hector Avalos M.D. 10/23/2023 3:15 PM
[2023-10-23] MEDS: cefTRIAXone SODIUM 2,000 MG in DEXTROSE 5 % MINI-B 50 ML IV SCH (18:38)
[2023-10-23] MEDS: CALCITONIN SALMON NA 200 IU/AC 3.7 ML BTL SCH (18:39)
[2023-10-23] MEDS: ACETAMINOPHEN 325 MG TAB PO PRN (19:32)
[2023-10-24 07:25] LABS: Hematocrit (blood only) 35.3 % (37.0-47.0); Hemoglobin 11.3 g/dl (12.0-16.0); Mean Corpuscular Hemoglobin 30.2 pg (25.0-34.0); Mean Corpuscular Volume 94.4 fL (80.0-100.0); Mean Platelet Volume 10.3 fL (9.4-12.4); Platelet Count 315 K/uL (130-400); RDW Coefficient of Variation 15.6 % (11.5-14.5); RDW Standard Deviation 54.4 fL (36.4-46.3); Red Blood Count 3.74 M/uL (4.20-5.40); White Blood Count 7.22 K/ul (4.8-10.8)
[2023-10-24 07:42] LABS: BUN Creatinine Ratio 28.4 (10-20); Calcium 10.6 mg/dl (8.6-10.3); Creatinine Clr Calc Pharmacy 77.8 ml/min; Est GFR (African American) 92.5 ml/min; Est GFR (Non-African American) 79.8 ml/min; Magnesium 1.9 mg/dl (1.7-2.4); Potassium 4.1 mmol/L (3.5-5.1)
[2023-10-24] MEDS: LIDOCAINE 5% 1 PATCH TD SCH (08:37)
[2023-10-24] MEDS ORDERED: POLYETHYLENE (MIRALAX) 17 GM PACK PO PRN (15:58)
--- NOTE | 2023-10-24 20:02 | Hospitalist Progress Note ---
Date of Service October 24, 2023 Assessment & Plan (1) UTI (urinary tract infection): Plan: Previous urine culture on 09/17/2023 with pansensitive Klebsiella UA on admission with positive nitrates, 4+ bacteria, + urinary frequency Ceftriaxone 2g given in ER CXR: Healing nondisplaced anterior right sixth rib fracture, likely subacute. Currently requiring 2L NC, wean as able Elevated trop 18.7, recheck remained stable. Most likely due to demand ischemia. Urine culture -- final results show pansensitive Klebsiella pneumoniae Continue ceftriaxone 2 g (last dose on 10/28/2023) CT head/brain without contrast on 10/23/2023 --no acute intracranial abnormality. (2) Acute hypokalemia: Plan: Potassium 2.6 on admission 60 mEq total repletion given in ED -- K increased to 2.8 Another 60 mEq total repletion given on 10/23/2023 -- K increased to 3.5 Magnesium 1.4 on admission. 1g x2 bags given in ED -- Mag WNL at 2.0 on 10/23/2023 (3) Hypercalcemia: Plan: HCTZ restarted by outside facility, after discontinued at discharge in September Consider Lasix if patient needs diuretics Discontinue CA/Vit D supplementation DEE level and Parathryoid related protein level checked last admission Ca elevated at 10.7 on admission Calcium WNL at 10.2 on 10/23/2023 Calcium elevated at 10.6 on 10/24/2023 (4) Cellulitis: Plan: R LE with mild erythema, nontender --significantly improved on 10/24/2023 Continue ceftriaxone as above for UTI (5) Hypertension: Plan: Continue home metoprolol Lisinopril decreased to 10mg given recommendation at last discharge and hx of REEMA (6) Hypothyroid: Plan: Continue synthroid TSH WNL 09/2023 (7) Compression fracture of L1 vertebra: Plan: Noted on CT scan, new from 09/2023 Patient does report low back pain, lidocaine patch helps Continue Flexeril Continue lidocaine patch Ordered Calcitonin nasal spray PRN for additional pain control Plan Code status: DNR, I discussed this with patient and daughter at beside DVT proh: heparin q 12 Admission and Anticipated Discharge Date Admission Date: October 22, 2023 Subjective Patient seen and evaluated at bedside. She reports continued weakness and feeling unsteady on her legs. She had 1 episode of diarrhea today. Her MiraLAX was changed to as needed. She reports that her visual changes have resolved. The cellulitis on her anterior right lower extremity appears to be improving today. Patient reports when laying in bed, she has no back pain today. Her appetite has returned and she ate the majority of her meals today, including her boost drink. Per the clinical dietitian's recommendations, her boost is capped at once a day until her hypercalcemia improves. Patient continues to deny any urinary symptoms. Denies headache, numbness, abdominal pain, shortness of breath, chest pain. Consider discharge tomorrow 10/25/2023 to rehab. Recommend outpatient follow-up to continue investigating persistent hypercalcemia. Physical Exam Physical Exam: General: No acute distress, well-developed, well-nourished Resp: No longer on supplemental oxygen, O2 sat remaining stable on room air, clear to auscultation bilaterally without wheezes, rales, or rhonchi. Normal respiratory effort CV: RRR, no murmur, gallops, or rubs Abd: Soft, nontender, bowel sounds present, no guarding or rebound tenderness Extremities: Mild nonpitting edema in the lower extremities bilaterally Neuro: A&O x3 Skin: Ecchymosis to the right posterior ribs, without significant tenderness to palpation. Mild erythema on anterior right lower extremity -- improving Results & Data Results & Data Vital Signs (Past 12 Hours) Vital Signs Temp Pulse Pulse Pulse Resp BP Pulse Ox 10/24/23 19:00 36.6 C 105 H 17 125/70 97 10/24/23 16:22 99 H 10/24/23 15:37 36.4 C 103 H 18 129/79 93 10/24/23 12:36 10/24/23 11:46 36.6 C 99 H 16 141/74 H 92 10/24/23 09:28 Pulse Ox O2 Del Method O2 Flow Rate O2 Flow Rate 10/24/23 19:00 Room Air 10/24/23 16:22 10/24/23 15:37 Room Air 10/24/23 12:36 95 0 10/24/23 11:46 Room Air 10/24/23 09:28 Nasal Cannula 2 Laboratory Results Reviewed CBC Reviewed BMP (1) UTI (urinary tract infection) Hematuria presence: without hematuria Urinary tract infection type: acute cystitis Qualified Code(s): N30.00 - Acute cystitis without hematuria (4) Cellulitis Laterality: right Site of cellulitis: extremity Site of cellulitis of extremity: lower extremity Qualified Code(s): L03.115 - Cellulitis of right lower limb (5) Hypertension Hypertension type: primary hypertension Qualified Code(s): I10 - Essential (primary) hypertension (6) Hypothyroid Hypothyroidism type: unspecified Qualified Code(s): E03.9 - Hypothyroidism, unspecified (7) Compression fracture of L1 vertebra Encounter type: initial encounter Qualified Code(s): S32.010A - Wedge compression fracture of first lumbar vertebra, initial encounter for closed fracture
[2023-10-25] MEDS: MELATONIN 3 MG TAB PO ONE (00:47)
[2023-10-25 08:17] LABS: Hemoglobin 12.1 g/dl (12.0-16.0); Mean Corpuscular Hemoglobin 29.9 pg (25.0-34.0); Mean Corpuscular Hgb Conc 31.8 g/dL (32.0-36.0); Mean Corpuscular Volume 93.8 fL (80.0-100.0); Mean Platelet Volume 9.9 fL (9.4-12.4); Platelet Count 342 K/uL (130-400); RDW Coefficient of Variation 15.7 % (11.5-14.5); RDW Standard Deviation 53.5 fL (36.4-46.3); Red Blood Count 4.05 M/uL (4.20-5.40); White Blood Count 7.87 K/ul (4.8-10.8)
[2023-10-25 08:43] LABS: BUN Creatinine Ratio 33.3 (10-20); Calcium 10.8 mg/dl (8.6-10.3); Est GFR (African American) 95.6 ml/min; Est GFR (Non-African American) 82.5 ml/min; Magnesium 1.7 mg/dl (1.7-2.4); Potassium 4.4 mmol/L (3.5-5.1)
[2023-10-25] MEDS: LOPERAMIDE HCL 2 MG CAP PO PRN (11:16)
--- NOTE | 2023-10-25 15:36 | Hospitalist Progress Note ---
Date of Service October 25, 2023 Assessment & Plan (1) UTI (urinary tract infection): Plan: Previous urine culture on 09/17/2023 with pansensitive Klebsiella UA on admission with positive nitrates, 4+ bacteria, + urinary frequency Ceftriaxone 2g given in ER CXR: Healing nondisplaced anterior right sixth rib fracture, likely subacute. Currently requiring 2L NC, wean as able Elevated trop 18.7, recheck remained stable. Most likely due to demand ischemia. Urine culture -- final results show pansensitive Klebsiella pneumoniae Continue ceftriaxone 2 g (last dose on 10/28/2023) CT head/brain without contrast on 10/23/2023 --no acute intracranial abnormality. (2) Acute hypokalemia: Plan: Potassium 2.6 on admission 60 mEq total repletion given in ED -- K increased to 2.8 Another 60 mEq total repletion given on 10/23/2023 -- K increased to 3.5 Magnesium 1.4 on admission. 1g x2 bags given in ED -- Mag WNL at 2.0 on 10/23/2023 (3) Hypercalcemia: Plan: HCTZ restarted by outside facility, after discontinued at discharge in September Consider Lasix if patient needs diuretics Discontinue CA/Vit D supplementation DEE level and Parathryoid related protein level checked last admission Ca elevated at 10.7 on admission Calcium WNL at 10.2 on 10/23/2023 Calcium elevated at 10.6 on 10/24/2023 (4) Cellulitis: Plan: R LE with mild erythema, nontender --significantly improved on 10/24/2023 Continue ceftriaxone as above for UTI (5) Hypertension: Plan: Continue home metoprolol Lisinopril decreased to 10mg given recommendation at last discharge and hx of REEMA (6) Hypothyroid: Plan: Continue synthroid TSH WNL 09/2023 (7) Compression fracture of L1 vertebra: Plan: Noted on CT scan, new from 09/2023 Patient does report low back pain, lidocaine patch helps Continue Flexeril Continue lidocaine patch Ordered Calcitonin nasal spray PRN for additional pain control Plan Code status: DNR, I discussed this with patient and daughter at beside DVT proh: heparin q 12 Admission and Anticipated Discharge Date Admission Date: October 22, 2023 Physical Exam Physical Exam: General: No acute distress, well-developed, well-nourished Resp: No longer on supplemental oxygen, O2 sat remaining stable on room air, clear to auscultation bilaterally without wheezes, rales, or rhonchi. Normal respiratory effort CV: RRR, no murmur, gallops, or rubs Abd: Soft, nontender, bowel sounds present, no guarding or rebound tenderness Extremities: Mild nonpitting edema in the lower extremities bilaterally Neuro: A&O x3 Skin: Ecchymosis to the right posterior ribs, without significant tenderness to palpation. Mild erythema on anterior right lower extremity -- improving Results & Data Results & Data Vital Signs (Past 12 Hours) Vital Signs Temp Pulse Pulse Resp BP Pulse Ox O2 Del Method 10/25/23 14:58 110 H 10/25/23 11:33 36.7 C 103 H 16 145/84 H 91 Room Air 10/25/23 07:45 36.9 C 52 L 16 139/77 91 Room Air 10/25/23 07:16 105 H (1) UTI (urinary tract infection) Hematuria presence: without hematuria Urinary tract infection type: acute cystitis Qualified Code(s): N30.00 - Acute cystitis without hematuria (4) Cellulitis Laterality: right Site of cellulitis: extremity Site of cellulitis of extremity: lower extremity Qualified Code(s): L03.115 - Cellulitis of right lower limb (5) Hypertension Hypertension type: primary hypertension Qualified Code(s): I10 - Essential (primary) hypertension (6) Hypothyroid Hypothyroidism type: unspecified Qualified Code(s): E03.9 - Hypothyroidism, unspecified (7) Compression fracture of L1 vertebra Encounter type: initial encounter Qualified Code(s): S32.010A - Wedge compression fracture of first lumbar vertebra, initial encounter for closed fracture
--- NOTE | 2023-10-25 15:43 | Hospitalist Progress Note ---
Date of Service October 25, 2023 Assessment & Plan (1) UTI (urinary tract infection): Plan: Previous urine culture on 09/17/2023 with pansensitive Klebsiella UA on admission with positive nitrates, 4+ bacteria, + urinary frequency Ceftriaxone 2g given in ER CXR: Healing nondisplaced anterior right sixth rib fracture, likely subacute. Currently requiring 2L NC, wean as able Elevated trop 18.7, recheck remained stable. Most likely due to demand ischem ia. Urine culture -- final results show pansensitive Klebsiella pneumoniae Continue ceftriaxone 2 g (last dose on 10/28/2023) CT head/brain without contrast on 10/23/2023 --no acute intracranial a bnormality. Continue ceftriaxone 2 g until 10/28/2023 Consider transitioning to cephalexin upon discharge. Imodium ordered PRN for diarrheal management. (2) Acute hypokalemia: Plan: Potassium 2.6 on admission 60 mEq total repletion given in ED -- K increased to 2.8 Another 60 mEq total repletion given on 10/23/2023 -- K increased to 3.5 Magnesium 1.4 on admission. 1g x2 bags given in ED -- Mag WNL at 2.0 on 10/23/2023 (3) Hypercalcemia: Plan: HCTZ restarted by outside facility, after discontinued at discharge in September Consider Lasix if patient needs diuretics Discontinue CA/Vit D supplementation DEE level and Parathryoid related protein level checked last admission Ca elevated at 10.7 on admission -Boost drinks capped at once daily per clinical supervisor dyer d/t hypercalcemia. Continue this recommendation for adjunctive nutrition in the setting of decreased appetitie and malnutrition Calcium WNL at 10.2 on 10/23/2023 Calcium elevated at 10.8 on 10/25/2023 Recommend close outpatient follow-up to further evaluate for persistent hypercalcemia Upon discharge, make it clear to rehab facility that HCTZ has been discontinued and Caltrate D has been discontinued. (4) Cellulitis: Plan: R LE with mild erythema, nontender --significantly improved on 10/24/2023 Continue ceftriaxone as above for UTI (5) Hypertension: Plan: Continue home metoprolol Lisinopril decreased to 10mg given recommendation at last discharge and hx of REEMA Upon discharge, make it clear to rehab facility that lisinopril has been decreased to 10 mg p.o. daily (6) Hypothyroid: Plan: Continue synthroid TSH WNL 09/2023 (7) Compression fracture of L1 vertebra: Plan: Noted on CT scan, new from 09/2023 Patient does report low back pain, lidocaine patch helps Continue Flexeril Continue lidocaine patch Ordered Calcitonin nasal spray PRN for additional pain control vertebral osteoporotic compression fracture L1 Plan Code status: DNR DVT proh: heparin q 12 Admission and Anticipated Discharge Date Admission Date: October 22, 2023 Subjective Patient seen and evaluated at bedside with daughter. She complains of frequent loose stools. She requested Imodium from the nurse numerous times. I discussed the loose stools/possibility of diarrhea with the nurse and she did not feel that there was any concern for C. difficile, so Imodium was ordered as needed. Patient reports some improvement in her bowel movements since receiving the Imodium. She continues to report weakness and feeling unsteady on her legs. Her hypokalemia and hypomagnesemia have resolved, however hypercalcemia remains. We discussed further evaluation for the persistent hypercalcemia with PCP in the outpatient setting. Initially, patient was planned to be discharged to [facility] for rehab today, however due to the frequent loose stools and feeling "not quite right" patient request to wait until tomorrow for transfer to rehab. She denies headache, numbness, abdominal pain, shortness of breath, or chest pain. Physical Exam Physical Exam: General: No acute distress, well-developed, well-nourished Resp: No longer on supplemental oxygen, O2 sat remaining stable on room air, clear to auscultation bilaterally without wheezes, rales, or rhonchi. Normal respiratory effort CV: RRR, no murmur, gallops, or rubs Abd: Soft, nontender, bowel sounds present, no guarding or rebound tenderness Extremities: Mild nonpitting edema in the lower extremities bilaterally Neuro: A&O x3 Skin: Ecchymosis to the right posterior ribs, without significant tenderness to palpation. Mild erythema on anterior right lower extremity -- improving Results & Data Results & Data Vital Signs (Past 12 Hours) Vital Signs Temp Pulse Pulse Resp BP Pulse Ox O2 Del Method 10/25/23 14:58 110 H 10/25/23 11:33 36.7 C 103 H 16 145/84 H 91 Room Air 10/25/23 07:45 36.9 C 52 L 16 139/77 91 Room Air 10/25/23 07:16 105 H Laboratory Results Reviewed CBC Reviewed BMP Reviewed urine cultures PG Care Time/CCT Total # of Minutes Spent Total Time Spent with Patient: Total time spent is greater than 50% in coordination of care (as documented) at patient's floor/unit and/or counseling patient: Coding Level of Care Code 62923 SUB INP/OBS CARE 2/35MIN Diagnoses UTI (urinary tract infection) N30.00 Hematuria presence: without hematuria Urinary tract infection type: acute cystitis Acute hypokalemia E87.6 Hypercalcemia E83.52 Cellulitis L03.115 Laterality: right Site of cellulitis: extremity Site of cellulitis of extremity: lower extremity Primary hypertension I10 Hypertension type: primary hypertension Hypothyroidism, unspecified type E03.9 Hypothyroidism type: unspecified Compression fracture of L1 vertebra, initial encounter S32.010A Encounter type: initial encounter (1) UTI (urinary tract infection) Hematuria presence: without hematuria Urinary tract infection type: acute cystitis Qualified Code(s): N30.00 - Acute cystitis without hematuria (4) Cellulitis Laterality: right Site of cellulitis: extremity Site of cellulitis of extremity: lower extremity Qualified Code(s): L03.115 - Cellulitis of right lower limb (5) Hypertension Hypertension type: primary hypertension Qualified Code(s): I10 - Essential (primary) hypertension (6) Hypothyroid Hypothyroidism type: unspecified Qualified Code(s): E03.9 - Hypothyroidism, unspecified (7) Compression fracture of L1 vertebra Encounter type: initial encounter Qualified Code(s): S32.010A - Wedge compression fracture of first lumbar vertebra, initial encounter for closed fracture
[2023-10-26 07:11] LABS: Hematocrit (blood only) 35.6 % (37.0-47.0); Hemoglobin 11.3 g/dl (12.0-16.0); Mean Corpuscular Hemoglobin 29.6 pg (25.0-34.0); Mean Corpuscular Hgb Conc 31.7 g/dL (32.0-36.0); Mean Corpuscular Volume 93.2 fL (80.0-100.0); Mean Platelet Volume 9.9 fL (9.4-12.4); Platelet Count 275 K/uL (130-400); RDW Coefficient of Variation 15.7 % (11.5-14.5); RDW Standard Deviation 53.1 fL (36.4-46.3); Red Blood Count 3.82 M/uL (4.20-5.40); White Blood Count 8.07 K/ul (4.8-10.8)
[2023-10-26 07:22] LABS: BUN Creatinine Ratio 34.3 (10-20); Calcium 10.8 mg/dl (8.6-10.3); Creatinine Clr Calc Pharmacy 85.8 ml/min; Est GFR (African American) 100.4 ml/min; Est GFR (Non-African American) 86.6 ml/min; Magnesium 1.6 mg/dl (1.7-2.4); Potassium 4.9 mmol/L (3.5-5.1)
[2023-10-26 09:12] LABS: C Reactive Protein 1.12 mg/dl (0-0.5)
[2023-10-26] MEDS: ADVANCED PROBIOTIC 1250 MG CAPSULE PO SCH (09:40)
--- NOTE | 2023-10-26 22:21 | Hospitalist Progress Note ---
Date of Service October 26, 2023 Assessment & Plan (1) UTI (urinary tract infection): Plan: Previous urine culture on 09/17/2023 with pansensitive Klebsiella UA on admission with positive nitrates, 4+ bacteria, + urinary frequency Ceftriaxone 2g given in ER CXR: Healing nondisplaced anterior right sixth rib fracture, likely subacute. Currently requiring 2L NC, wean as able Elevated trop 18.7, recheck remained stable. Most likely due to demand ischem ia. Urine culture -- final results show pansensitive Klebsiella pneumoniae Continue ceftriaxone 2 g (last dose on 10/28/2023) CT head/brain without contrast on 10/23/2023 --no acute intracranial a bnormality. Continue ceftriaxone 2 g until 10/28/2023 Consider transitioning to cephalexin upon discharge. discontinued immodium as concern over ci diff. will order probitoics, will obtain c diff sample if diarrhea contiues. will trend crp. possible discharge on 10/27 (2) Acute hypokalemia: Plan: Potassium 2.6 on admission 60 mEq total repletion given in ED -- K increased to 2.8 Another 60 mEq total repletion given on 10/23/2023 -- K increased to 3.5 Magnesium 1.4 on admission. 1g x2 bags given in ED -- Mag WNL at 2.0 on 10/23/2023 replaced potassium (3) Hypercalcemia: Plan: HCTZ restarted by outside facility, after discontinued at discharge in September Consider Lasix if patient needs diuretics Discontinue CA/Vit D supplementation DEE level and Parathryoid related protein level checked last admission Ca elevated at 10.7 on admission -Boost drinks capped at once daily per clinical director cardiology d/t hypercalcemia. Continue this recommendation for adjunctive nutrition in the setting of decreased appetitie and malnutrition Calcium WNL at 10.2 on 10/23/2023 Calcium elevated at 10.8 on 10/25/2023 Recommend close outpatient follow-up to further evaluate for persistent hypercalcemia Upon discharge, make it clear to rehab facility that HCTZ has been discontinued and Caltrate D has been discontinued. will recommend followup with endocrinology to further assess hypercalcemia as PTHi is normal PTHrP is not elevated 1.25 dihydroxyvitamin D is not elevated. 25-hydroxyvitamin D is not elvated. will obtain SPEP UPEP Serum light chain assayu (4) Cellulitis: Plan: R LE with mild erythema, nontender --significantly improved on 10/24/2023 Continue ceftriaxone as above for UTI (5) Hypertension: Plan: Continue home metoprolol Lisinopril decreased to 10mg given recommendation at last discharge and hx of REEMA Upon discharge, make it clear to rehab facility that lisinopril has been decreased to 10 mg p.o. daily (6) Hypothyroid: Plan: Continue synthroid TSH WNL 09/2023 (7) Compression fracture of L1 vertebra: Plan: Noted on CT scan, new from 09/2023 Patient does report low back pain, lidocaine patch helps Continue Flexeril Continue lidocaine patch Ordered Calcitonin nasal spray PRN for additional pain control vertebral osteoporotic compression fracture L1 Plan Code status: DNR DVT proh: heparin q 12 Admission and Anticipated Discharge Date Admission Date: October 22, 2023 Subjective Patient reports no diarrhea today/ Review of Systems Review of Systems: All systems reviewed & are unremarkable except as noted in HPI & below Physical Exam Physical Exam: General: No acute distress, well-developed, well-nourished Resp: No longer on supplemental oxygen, O2 sat remaining stable on room air, clear to auscultation bilaterally without wheezes, rales, or rhonchi. Normal respiratory effort CV: RRR, no murmur, gallops, or rubs Abd: Soft, nontender, bowel sounds present, no guarding or rebound tenderness Extremities: Mild nonpitting edema in the lower extremities bilaterally Neuro: A&O x3 Skin: Mild erythema on anterior right lower extremity -- improving Results & Data Results & Data Vital Signs (Past 12 Hours) Vital Signs Temp Pulse Pulse Resp BP Pulse Ox O2 Del Method 10/26/23 20:04 36.3 C L 113 H 18 157/89 H 94 Room Air 10/26/23 16:56 86 10/26/23 15:41 36.6 C 102 H 12 111/72 94 Room Air 10/26/23 11:47 36.3 C L 101 H 16 144/79 H 96 Room Air 10/26/23 10:33 102 H PG Care Time/CCT Total # of Minutes Spent Total Time Spent with Patient: Total time spent is greater than 50% in coordination of care (as documented) at patient's floor/unit and/or counseling patient: Coding Level of Care Code 44373 SUB INP/OBS CARE 3/50MIN Diagnoses UTI (urinary tract infection) N30.00 Hematuria presence: without hematuria Urinary tract infection type: acute cystitis Acute hypokalemia E87.6 Hypercalcemia E83.52 Cellulitis L03.115 Laterality: right Site of cellulitis: extremity Site of cellulitis of extremity: lower extremity Primary hypertension I10 Hypertension type: primary hypertension Hypothyroidism, unspecified type E03.9 Hypothyroidism type: unspecified Compression fracture of L1 vertebra, initial encounter S32.010A Encounter type: initial encounter Time Spent (min) 50 (1) UTI (urinary tract infection) Hematuria presence: without hematuria Urinary tract infection type: acute cystitis Qualified Code(s): N30.00 - Acute cystitis without hematuria (4) Cellulitis Laterality: right Site of cellulitis: extremity Site of cellulitis of extremity: lower extremity Qualified Code(s): L03.115 - Cellulitis of right lower limb (5) Hypertension Hypertension type: primary hypertension Qualified Code(s): I10 - Essential (primary) hypertension (6) Hypothyroid Hypothyroidism type: unspecified Qualified Code(s): E03.9 - Hypothyroidism, unspecified (7) Compression fracture of L1 vertebra Encounter type: initial encounter Qualified Code(s): S32.010A - Wedge compression fracture of first lumbar vertebra, initial encounter for closed fracture
[2023-10-27 07:14] LABS: Hematocrit (blood only) 33.7 % (37.0-47.0); Hemoglobin 11.4 g/dl (12.0-16.0); Mean Corpuscular Hemoglobin 30.6 pg (25.0-34.0); Mean Corpuscular Hgb Conc 33.8 g/dL (32.0-36.0); Mean Corpuscular Volume 90.6 fL (80.0-100.0); Mean Platelet Volume 10.7 fL (9.4-12.4); Platelet Count 303 K/uL (130-400); RDW Coefficient of Variation 15.6 % (11.5-14.5); RDW Standard Deviation 51.3 fL (36.4-46.3); Red Blood Count 3.72 M/uL (4.20-5.40); White Blood Count 8.24 K/ul (4.8-10.8)
[2023-10-27 07:38] LABS: Potassium 4.8 mmol/L (3.5-5.1)
[2023-10-27 07:44] LABS: BUN Creatinine Ratio 27.3 (10-20); C Reactive Protein 0.75 mg/dl (0-0.5); Creatinine Clr Calc Pharmacy 87.1 ml/min; Est GFR (African American) 100.9 ml/min
--- NOTE | 2023-10-27 11:39 | Discharge Summary ---
Date of Service October 27, 2023 Admission HPI Per Admitting Provider t is a 73 yo female with PMH of breast cancer in 1999 s/p chemo and radiation, HTN, HLD, and hypothyroidism presenting due to weakness. Pt resides at the [facility]. Daughter present at bedside. Patient evaluated in room C6. Recent admission last month for REEMA was discharged to [facility] for rehab, about a week ago. Since then she has not felt well - reports weakness and decreased appetite. Has been taking all of her medications. Of note Caltrate Vit D and HCTZ were restarted by the outside facility, after being discontinued at discharge from the hospital. Denies urgency or burning, but does report frequency. Denies fevers, possible chills. Reports dry heaving this morning but no vomiting. Bruise on her back, patient did not know it was there, but does not recall recent falls. ? cellulitis on Right leg Med list from [facility] fluoxetine hctz levothyroxine lisinopril metoprolol omeprazole Catrate vit D prolia atorvastatin Principal Diagnosis UTI Discharge Exam General: No acute distress, well-developed, well-nourished Resp: No longer on supplemental oxygen, O2 sat remaining stable on room air, clear to auscultation bilaterally without wheezes, rales, or rhonchi. Normal respiratory effort CV: RRR, no murmur, gallops, or rubs Abd: Soft, nontender, bowel sounds present, no guarding or rebound tenderness Extremities: Mild nonpitting edema in the lower extremities bilaterally Neuro: A&O x3 Skin: Mild erythema on anterior right lower extremity -- improving Discharge Data Allergies Allergy/AdvReac Type Severity Reaction Status Date / Time amoxicillin AdvReac Intermediate Diarrhea Verified 09/17/23 03:04 ciprofloxacin AdvReac Intermediate CAUSED Verified 09/17/23 03:04 C-DIFF codeine AdvReac Intermediate NAUSEA/VOMI Verified 09/17/23 03:04 TING Consultations 10/22/23 17:25 ED Decision to Admit Stat Ordered Studies 10/22/23 15:30 CT abd pelvis IV con only Stat 10/23/23 14:05 CT head/brain wo con Routine Hospital Course (1) UTI (urinary tract infection): Previous urine culture on 09/17/2023 with pansensitive Klebsiella UA on admission with positive nitrates, 4+ bacteria, + urinary frequency Ceftriaxone 2g given in ER CXR: Healing nondisplaced anterior right sixth rib fracture, likely subacute. Currently requiring 2L NC, wean as able Elevated trop 18.7, recheck remained stable. Most likely due to demand ischemia. Urine culture -- final results show pansensitive Klebsiella pneumoniae Continue ceftriaxone 2 g (last dose on 10/28/2023) CT head/brain without contrast on 10/23/2023 --no acute intracranial abnormality. Completed 5 days worth of ceftriaxone 2 g discontinued immodium as concern over c. diff. Patient however improved with probiotics and diarrhea subsided. No clinical findings of c diff. (2) Acute hypokalemia: Potassium 2.6 on admission 60 mEq total repletion given in ED -- K increased to 2.8 Another 60 mEq total repletion given on 10/23/2023 -- K increased to 3.5 Magnesium 1.4 on admission. 1g x2 bags given in ED -- Mag WNL at 2.0 on 10/23/2023 replaced potassium (3) Hypercalcemia: HCTZ restarted by outside facility, after discontinued at discharge in September Consider Lasix if patient needs diuretics Discontinue CA/Vit D supplementation DEE level and Parathryoid related protein level checked last admission Ca elevated at 10.7 on admission -Boost drinks capped at once daily per clinical wash oil cooler operator d/t hypercalcemia. Continue this recommendation for adjunctive nutrition in the setting of decreased appetitie and malnutrition Calcium WNL at 10.2 on 10/23/2023 Calcium elevated at 10.8 on 10/25/2023 Recommend close outpatient follow-up to further evaluate for persistent hypercalcemia Upon discharge, it is noted that HCTZ has been discontinued and Caltrate D has been discontinued. will recommend followup with endocrinology to further assess hypercalcemia as PTHi is normal PTHrP is not elevated 1.25 dihydroxyvitamin D is not elevated. 25-hydroxyvitamin D is not elevated. will obtain: SPEP UPEP Serum light chain assayu (4) Cellulitis: R LE with mild erythema, nontender --significantly improved on 10/24/2023 Continue ceftriaxone as above for UTI (5) Hypertension: Continue home metoprolol Lisinopril decreased to 10mg given recommendation at last discharge and hx of REEMA Upon discharge, make it clear to rehab facility that lisinopril has been decreased to 10 mg p.o. daily (6) Hypothyroid: Continue synthroid TSH WNL 09/2023 (7) Compression fracture of L1 vertebra: Noted on CT scan, new from 09/2023 Patient does report low back pain, lidocaine patch helps Continue Flexeril Continue lidocaine patch Ordered Calcitonin nasal spray PRN for additional pain control vertebral osteoporotic compression fracture L1 Total Time Total Time Spent Total Time Spent (In Minutes): 32 Discharge Plan Discharge Items Patient Disposition: Home - Self-Care Reason For Visit: UTI Discharge Diagnosis: UTI Activity: Resume your previous activity Non-emergency contact: Primary Care Provider Call non-emergency contact if: you have any medication questions Follow-up/Referrals: Johnathon Ross [Primary Care Provider] - Diet: Heart Healthy Addtl Attending Provider Instructions: recommend folowup with Endocrinology for Hypercalcemia Recommend followup with PCP in 1-2 weeks. Pending Studies at Discharge: No Stand-Alone Forms: My [employer], Smoking Cessation Medications and DC Order Prescriptions: New calcitonin (salmon) 200 unit/actuation [place],Non-Aerosol 1 spray NA DAILY Qty: 24 0RF lidocaine 5 % Adhesive Patch,Medicated 1 patch transdermal QAM Qty: 14 0RF Rx Instructions: place for 12 hours then remove Advanced Probiotic 625 mg (10 billion cell) Capsule 2 cap PO DAILY Qty: 6 0RF Continued fluoxetine 40 mg capsule 40 mg PO QAM levothyroxine 25 mcg tablet 25 mcg PO QAM metoprolol succinate 50 mg tablet extended release 24 hr 50 mg PO QAM Prolia 60 mg/mL syringe 60 mg subcut Q180D Patient Comments: october and april injections Rx Instructions: IS OVER DUE TO BE TAKEN omeprazole 40 mg capsule,delayed release(DR/EC) 40 mg PO QAM atorvastatin 20 mg tablet 20 mg PO DAILY cyclobenzaprine 5 mg Tablet 2.5 mg PO TID PRN (Reason: muscle spasm) Qty: 10 0RF polyethylene glycol 3350 [Miralax] 17 gram Powder In Packet 17 g PO DAILY Qty: 30 0RF acetaminophen [Tylenol Extra Strength] 500 mg Tablet 1,000 mg PO DAILY acetaminophen [Tylenol Extra Strength] 500 mg Tablet 1,000 mg PO BID PRN (Reason: Pain) lisinopril 20 mg tablet 10 mg PO QAM Qty: 30 0RF Discharge Orders: Discharge Order (Routine); Ordered 10/27/23 Ordered By: Omar A Saborio Admission Data Admit Date/Time: 10/22/23 20:12 Attending Provider: Omar Holguin Admit Provider: Peter Cox Primary Care Provider: Johnathon Ross Other Interventions: Discharge Summary Assessment (RN) Last Done: 10/27/23 14:49 Coding Level of Care Code 28437 INP/OBS DISCH >30 MIN Diagnoses UTI (urinary tract infection) N30.00 Hematuria presence: without hematuria Urinary tract infection type: acute cystitis Acute hypokalemia E87.6 Hypercalcemia E83.52 Cellulitis L03.115 Laterality: right Site of cellulitis: extremity Site of cellulitis of extremity: lower extremity Primary hypertension I10 Hypertension type: primary hypertension Hypothyroidism, unspecified type E03.9 Hypothyroidism type: unspecified Compression fracture of L1 vertebra, initial encounter S32.010A Encounter type: initial encounter
[2023-10-30 12:42] LABS: Free Kappa 19.1 mg/L (3.3-19.4); Free Kappa/Lambda Ratio 1.48 (0.26-1.65); Free Lambda 12.9 mg/L (5.7-26.3)
[2023-10-31 13:48] LABS: Albumin 3.1 g/dL (3.8-4.8); Alpha 1 Globulin 0.4 g/dL (0.2-0.3); Beta-1-Globulin 0.4 g/dL (0.4-0.6); Beta-2-Globulin 0.4 g/dL (0.2-0.5); Gamma Globulin 0.6 g/dL (0.8-1.7); Monoclonal Protein Band 1 DNR g/dL (NONE DETECTED); Monoclonal Protein Band 2 DNR g/dL (NONE DETECTED); Monoclonal Protein Band 3 DNR g/dL (NONE DETECTED); Total Protein 5.9 g/dL (6.1-8.1)
== END 2023-10-27 15:07 | disposition home or self-care (01) | DRG 690 ==
LOC: SUATTDRO → ED 14:59 → SUATTDRO 20:12 → EDINP 20:12 → 2N 10-23 00:46